=== PATIENT | male | born 1950 | race Caucasian/White ===

== ENCOUNTER 2017-11-09 16:24 | Inpatient (IN) | payer MEDICARE, BC ==
[2017-11-09] VITALS (7 sets, daily range): BP systolic 100–123; BP diastolic 56–71
[~2017-11-09] VITALS: Ht 175.3 cm; Wt 68.0 kg
[~2017-11-09 16:24] MED LIST: ASPIRIN-LOW81 MG ORAL; ATORVASTATIN CA10 MG ORAL; BRIMONIDINE TART5 ML BOTH EYES; DIOVAN40 MG ORAL; LEXAPRO20 MG ORAL; LUMIGAN2.5 ML BOTH EYES; PREVACID15 MG ORAL
[2017-11-09 17:46] LABS: HEMATOCRIT 22.4 % (42.0-52.0); HEMOGLOBIN 7.5 G/DL (14.2-18.0); MEAN CORPUSCULAR VOLUME 94 FL (80-99); PLATELET COUNT 579 K/UL (150-450); RED BLOOD COUNT 2.39 M/UL (4.70-6.10); RED CELL DISTRIBUTION WIDTH 18.7 % (11.6-14.8); WHITE BLOOD COUNT 10.7 K/UL (4.8-10.8)
[2017-11-09 18:03] LABS: ANION GAP 15 mmol/L (5-15); BLOOD UREA NITROGEN 75 mg/dL (7-18); CALCIUM 8.5 MG/DL (8.5-10.1); CARBON DIOXIDE 17 MMOL/L (21-32); CHLORIDE 102 MMOL/L (98-107); CREATININE 4.5 MG/DL (0.55-1.30); POTASSIUM 4.2 MMOL/L (3.5-5.1); SODIUM 134 MMOL/L (136-145)
[2017-11-09 18:15] LABS: ALANINE AMINOTRANSFERASE 39 U/L (12-78); ALBUMIN 1.8 G/DL (3.4-5.0); ALBUMIN/GLOBULIN RATIO 0.5 (1.0-2.7); ALKALINE PHOSPHATASE 991 U/L (46-116); ASPARTATE AMINO TRANSFERASE 99 U/L (15-37)
[2017-11-09 18:18] LABS: BILIRUBIN,DIRECT 4.4 MG/DL (0.0-0.3)
[2017-11-09] MEDS ORDERED: LANSOPRAZOLE30 M2 PO (19:08)
[2017-11-09] MEDS ORDERED: VITAMIN C500 M1 ORAL (19:08)
[2017-11-09] MEDS ORDERED: CEREFOLIN NAC1 EAC1 PO (19:08)
[2017-11-09] MEDS ORDERED: BIOTIN5000 MC1 SL (19:08)
[2017-11-09] MEDS ORDERED: TRIPLE FLEX CA1 EACH PO (19:08)
[2017-11-09] MEDS ORDERED: FLUOXETINE HCL20 MG ORAL (19:08)
[2017-11-09] MEDS ORDERED: OMEGA 3 FISH O1 EAC1 PO (19:08)
[2017-11-09] MEDS ORDERED: NEURONTIN300 MG ORAL (19:08)
[2017-11-09] MEDS ORDERED: BUPROPION XL300 MG ORAL (19:08)
[2017-11-09] MEDS ORDERED: FLOMAX0.4 MG ORAL (19:08)
[2017-11-09] MEDS ORDERED: PROVIGIL100 MG ORAL (19:08)
--- NOTE | 2017-11-09 21:29 | Emergency Room Report ---
History of Present Illness General Chief Complaint: Generalized Weakness Source: EMS Present Illness HPI 67-year-old male presents ED for evaluation. Brought in by EMS. States he's been feeling increasingly weak over the last few days. 2 weeks to get up. Per EMS blood pressure was very low in the field. Denies fevers or chills. Denies chest pain shortness of breath. Patient states he's been recently diagnosed with liver cancer. Also has metastases to the brain. Currently receiving radiation treatment. No other aggravating relieving factors. Denies any other associated symptoms Allergies: Coded Allergies: No Known Allergies (Unverified , 08/09/13) Patient History Past Medical History: HTN Past Surgical History: none Pertinent Family History: none Social History: Denies: smoking, alcohol use, drug use Immunizations: UTD Reviewed Nursing Documentation: PMH: Agreed; PSxH: Agreed Nursing Documentation-PMH Hx Cardiac Problems: Yes Hx Hypertension: Yes Hx Cancer: Yes - LIVER CA Review of Systems All Other Systems: negative except mentioned in HPI Physical Exam Vital Signs Date Time Temp Pulse Resp B/P (MAP) Pulse Ox O2 Delivery O2 Flow Rate FiO2 11/09/17 16:23 98.0 94 15 100/64 98 Room Air 98.1 Sp02 EP Interpretation: reviewed, normal General Appearance: no apparent distress, alert, GCS 15, non-toxic, cachetic Head: normocephalic Eyes: bilateral eye PERRL, bilateral eye other - icteric in both eyes ENT: normal ENT inspection Neck: normal inspection Respiratory: chest non-tender, lungs clear, normal breath sounds, speaking full sentences Cardiovascular #1: regular rate, rhythm, no edema Cardiovascular #2: 2+ carotid (R), 2+ carotid (L), 2+ radial (R), 2+ radial (L) , 2+ dorsalis pedis (R), 2+ dorsalis pedis (L) Gastrointestinal: normal bowel sounds, non tender, soft, no guarding, no rebound, distended Rectal: normal exam Genitourinary: normal inspection Musculoskeletal: back normal, gait/station normal, normal range of motion, non- tender Neurologic: alert, oriented x3, responsive, motor strength/tone normal, sensory intact, speech normal Psychiatric: normal inspection Skin: normal inspection Lymphatic: normal inspection Medical Decision Making Diagnostic Impression: Primary Impression: Weakness Additional Impressions: Renal failure Qualified Codes: N19 - Unspecified kidney failure Anemia Qualified Codes: D64.9 - Anemia, unspecified Liver failure Qualified Codes: K72.00 - Acute and subacute hepatic failure without coma ER Course Hospital Course 67-year-old male presents ED with weakness, jaundiced, blood pressure low Differential diagnoses include: anemia, dehydration, liver failure Clinical course Patient placed on stretcher. After initial history and physical I ordered labs , ivfs Labs- no luekocytosis, hb 7.5, BUN/Cr markedly elevated, LFTs elevated PRBCs ordered. IV fluids. Patient will be admitted to Dr. Quintero Diagnosis - weakness, renal failure, anemia, liver failure Admitted to floor in serious condition Labs Test 11/09/17 17:20 White Blood Count 10.7 K/UL (4.8-10.8) Red Blood Count 2.39 M/UL (4.70-6.10) Hemoglobin 7.5 G/DL (14.2-18.0) Hematocrit 22.4 % (42.0-52.0) Mean Corpuscular Volume 94 FL (80-99) Mean Corpuscular Hemoglobin 31.4 PG (27.0-31.0) Mean Corpuscular Hemoglobin Concent 33.5 G/DL (32.0-36.0) Red Cell Distribution Width 18.7 % (11.6-14.8) Platelet Count 579 K/UL (150-450) Mean Platelet Volume 5.9 FL (6.5-10.1) Neutrophils (%) (Auto) % (45.0-75.0) Lymphocytes (%) (Auto) % (20.0-45.0) Monocytes (%) (Auto) % (1.0-10.0) Eosinophils (%) (Auto) % (0.0-3.0) Basophils (%) (Auto) % (0.0-2.0) Differential Total Cells Counted 100 Neutrophils % (Manual) 77 % (45-75) Lymphocytes % (Manual) 13 % (20-45) Monocytes % (Manual) 10 % (1-10) Eosinophils % (Manual) 0 % (0-3) Basophils % (Manual) 0 % (0-2) Band Neutrophils 0 % (0-8) Nucleated Red Blood Cells 1 /100 WBC Platelet Estimate Increased Platelet Morphology Normal Polychromasia 1+ Anisocytosis 2+ Sodium Level 134 MMOL/L (136-145) Potassium Level 4.2 MMOL/L (3.5-5.1) Chloride Level 102 MMOL/L (98-107) Carbon Dioxide Level 17 MMOL/L (21-32) Anion Gap 15 mmol/L (5-15) Blood Urea Nitrogen 75 mg/dL (7-18) Creatinine 4.5 MG/DL (0.55-1.30) Estimat Glomerular Filtration Rate 13.1 mL/min (>60) Glucose Level 96 MG/DL (74-106) Calcium Level 8.5 MG/DL (8.5-10.1) Total Bilirubin 5.0 MG/DL (0.2-1.0) Direct Bilirubin 4.4 MG/DL (0.0-0.3) Aspartate Amino Transf (AST/SGOT) 99 U/L (15-37) Alanine Aminotransferase (ALT/SGPT) 39 U/L (12-78) Alkaline Phosphatase 991 U/L (46-116) Ammonia umol/L (11-32) Total Protein 5.5 G/DL (6.4-8.2) Albumin 1.8 G/DL (3.4-5.0) Globulin 3.7 g/dL Albumin/Globulin Ratio 0.5 (1.0-2.7) Lipase 150 U/L (73-393) Last Vital Signs Date Time Temp Pulse Resp B/P (MAP) Pulse Ox O2 Delivery O2 Flow Rate FiO2 11/09/17 20:40 97.8 95 20 123/58 95 Room Air 97.8 Status: improved Disposition: ADMITTED INPATIENT Condition: Serious Referrals: TONIO LOUIE MD (PCP) Arias Schwarz MD Nov 09, 2017 21:29
--- NOTE | 2017-11-09 21:31 | Emergency Room Report ---
Physical Exam Vital Signs Date Time Temp Pulse Resp B/P (MAP) Pulse Ox O2 Delivery O2 Flow Rate FiO2 11/09/17 16:23 98.0 94 15 100/64 98 Room Air 98.1 Medical Decision Making Diagnostic Impression: Primary Impression: Weakness Additional Impressions: Anemia Qualified Codes: D64.9 - Anemia, unspecified Renal failure Qualified Codes: N19 - Unspecified kidney failure Liver failure Qualified Codes: K72.00 - Acute and subacute hepatic failure without coma ER Course EKG - NSR, no acute ischemic changes interpreted by me EKG Diagnostic Results Rate: normal Rhythm: NSR ST Segments: no acute changes ASA given to the pt in ED: No Rhythm Strip Diag. Results EP Interpretation: yes Rhythm: NSR, no PVC's, no ectopy Last Vital Signs Date Time Temp Pulse Resp B/P (MAP) Pulse Ox O2 Delivery O2 Flow Rate FiO2 11/09/17 20:40 97.8 95 20 123/58 95 Room Air 97.8 Status: improved Disposition: ADMITTED INPATIENT Condition: Serious Referrals: TONIO LOUIE MD (PCP) Arias Schwarz MD Nov 09, 2017 21:31
[2017-11-09] MEDS ORDERED: HYDROmorphone 1mg/ml Carpuject IVP PRN ×2 (23:15)
[2017-11-10] VITALS: BP 118/71
[2017-11-10 04:00] VITALS: BP_SYST 109; BP_SYST 112; BP_DIAS 64; BP_DIAS 65
[2017-11-10 06:35] LABS: BASOPHILS % (AUTO) 0.6 % (0.0-2.0); EOSINOPHILS % (AUTO) 0.8 % (0.0-3.0); HEMATOCRIT 27.2 % (42.0-52.0); HEMOGLOBIN 9.2 G/DL (14.2-18.0); LYMPHOCYTES % (AUTO) 12.1 % (20.0-45.0); MEAN CORPUSCULAR VOLUME 91 FL (80-99); MONOCYTES % (AUTO) 9.2 % (1.0-10.0); NEUTROPHILS % (AUTO) 77.2 % (45.0-75.0); PLATELET COUNT 525 K/UL (150-450); RED BLOOD COUNT 2.98 M/UL (4.70-6.10); RED CELL DISTRIBUTION WIDTH 18.5 % (11.6-14.8); WHITE BLOOD COUNT 10.8 K/UL (4.8-10.8)
[2017-11-10 07:20] LABS: ALANINE AMINOTRANSFERASE 41 U/L (12-78); ALBUMIN 1.7 G/DL (3.4-5.0); ALKALINE PHOSPHATASE 939 U/L (46-116); ANION GAP 16 mmol/L (5-15); ASPARTATE AMINO TRANSFERASE 95 U/L (15-37); BILIRUBIN,DIRECT 4.9 MG/DL (0.0-0.3); BILIRUBIN,TOTAL 5.6 MG/DL (0.2-1.0); BLOOD UREA NITROGEN 74 mg/dL (7-18); CALCIUM 8.4 MG/DL (8.5-10.1); CARBON DIOXIDE 16 MMOL/L (21-32); CHLORIDE 104 MMOL/L (98-107); CREATININE 4.3 MG/DL (0.55-1.30); POTASSIUM 3.9 MMOL/L (3.5-5.1); SODIUM 135 MMOL/L (136-145)
[2017-11-10 08:00] VITALS: BP 122/74
[2017-11-10] MEDS ORDERED: Loperamide 2mg cap ORAL PRN (08:45)
[2017-11-10] MEDS ORDERED: Tamsulosin 0.4mg cap ORAL SCH (09:00)
[2017-11-10] MEDS: Loperamide 2mg cap ORAL SCH (09:04)
[2017-11-10] MEDS: Modafinil 100mg tab ORAL SCH ×2 (09:04→17:21)
[2017-11-10] MEDS: Brimonidine 0.2% Opth Sol BOTH EYES SCH ×3 (10:13→17:21)
[2017-11-10] MEDS: BuPROPion XL 300mg tab ORAL SCH (11:08)
--- NOTE | 2017-11-10 11:48 | History and Physical ---
History of Present Illness General Date patient seen: Nov 10, 2017 Time patient seen: 11:48 Reason for Hospitalization: Generalized Weakness, Intractable pain Present Illness HPI 67y/o male with pmh of BPH, HLD, R sided ocular melanoma (s/p XRT 2005), newly diagnosed metastatic melanoma (liver, lung, brain lesions) who presents with generalized weakness and intractable pain. Pt states that he was diagnosed with liver cancer in September 2017. Per review of [facility] records, pt presented with abd pain and was noted to have liver and lung lesions on 09/21/17. Pt had CT-guided biopsy on liver lesion on 09/30/17 which showed metastatic melanoma. Pt was since been followed by oncologist Dr. Pedro Laws for consideration of clinical trial. MRI brain done also showed 2 lesions in brain. Pt has also received stereotactic radiosurgery at [facility] on 10/21/17. Pt states he has had worsening abd pain and distention. he was evaluated for paracentesis recently and they determined there was insufficient fluid. Pt states he has been taking Tylenol as well as Advil every 4 hours for the past week for pain control. He notes generalized weakness, poor PO intake and weight loss. Denies f/c, n/v, d/c, chest pain, SOB. In ED, pt's SCr noted to be in 4's. Per [facility] records, pt's SCr was 1.03 in 2017. Allergies: Coded Allergies: No Known Allergies (Unverified , 08/09/13) Medication History Scheduled Ascorbic Acid* (Vitamin C*), 500 MG ORAL DAILY, (Reported) Aspirin (Aspirin EC), 81 MG ORAL DAILY, (Reported) Atorvastatin Calcium* (Lipitor*), 10 MG ORAL BEDTIME, (Reported) Bimatoprost (Lumigan), 1 DROP BOTH EYES DAILY, (Reported) Brimonidine Tartrate* (Alphagan*), 1 DROP BOTH EYES TID, (Reported) Bupropion Hcl* (Wellbutrin*), 300 MG ORAL DAILY, (Reported) Escitalopram Oxalate* (Lexapro*), 20 MG ORAL DAILY, (Reported) Fluoxetine Hcl* (Fluoxetine Hcl*), 20 MG ORAL BID, (Reported) Gabapentin (Neurontin), 300 MG ORAL BEDTIME, (Reported) Lansoprazole (Lansoprazole), 30 MG PO DAILY, (Reported) Lansoprazole* (Prevacid*), 15 MG ORAL DAILY, (Reported) Lmfol Ca/Acetyl/Mb12/Algal Oil (Cerefolin Nac Caplet), 1 EACH PO DAILY, ( Reported) Modafinil (Provigil), 100 MG ORAL BID, (Reported) Tamsulosin HCl (Flomax), 0.4 MG ORAL DAILY, (Reported) Valsartan (Diovan), 40 MG ORAL DAILY, (Reported) Miscellaneous Medications Biotin (Biotin), 5,000 MCG SL, (Reported) Glucosamine/Msm/Chondroitin A (Triple Flex Caplet), 1 EACH PO, (Reported) [place]-3 Fatty Acids/Fish Oil ([place] 3 Fish Oil Softgel), 1 EACH PO, (Reported) Patient History History Provided By: Patient, Medical Record, PMD Healthcare decision maker Resuscitation status Full Code Advanced Directive on File Past Medical/Surgical History Past Medical/Surgical History: (1) R sided ocular melanoma (2) Metastatic melanoma (3) BPH (benign prostatic hyperplasia) (4) HLD (hyperlipidemia) Family History Family History: Patient reports no known family medical history. Social History Social History: (1) lives alone Review of Systems Constitutional: Reports: weakness Eye: Reports: no symptoms ENT: Reports: no symptoms Respiratory: Reports: no symptoms Cardiovascular: Reports: no symptoms Gastrointestinal: Reports: abdominal pain Genitourinary: Reports: no symptoms Musculoskeletal: Reports: no symptoms Skin: Reports: no symptoms Psychiatric: Reports: no symptoms Neurological: Reports: no symptoms Endocrine: Reports: no symptoms Hematologic/Lymphatic: Reports: no symptoms Physical Exam Physical Exam Narrative General: alert, cooperative, no distress, appears stated ag Head: normocephalic, without obvious abnormality, atraumatic Eyes: conjunctivae/corneas clear. PERRL, EOM's intact Throat: lips, mucosa, and tongue normal. MMM Neck: supple, symmetrical, trachea midline, and no JVD Lungs: clear to auscultation bilaterally Heart: regular rate and rhythm, S1, S2 normal, no murmur, click, rub or gallop Abdomen: soft, +TTP diffusely, +moderate distention, bowel sounds normal Extremities: extremities normal, atraumatic, no cyanosis or edema Pulses: 2+ and symmetric Skin: skin color, texture, turgor normal; no rashes or lesions Neurologic: grossly normal, no focal deficits Last 24 Hour Vital Signs Date Time Temp Pulse Resp B/P (MAP) Pulse Ox O2 Delivery O2 Flow Rate FiO2 11/10/17 10:38 122/74 11/10/17 08:00 97.3 94 20 122/74 96 97.3 11/10/17 04:00 97.0 91 21 112/64 97 97.0 11/10/17 04:00 98.1 89 19 109/65 99 98.1 11/10/17 00:00 97.3 91 19 118/71 95 Room Air 97.3 11/09/17 21:50 97.8 88 20 123/56 95 Room Air 97.8 11/09/17 21:40 88 20 123/56 95 Room Air 11/09/17 20:40 97.8 95 20 123/58 95 Room Air 97.8 11/09/17 20:25 97.8 95 20 97.8 11/09/17 20:10 97.7 88 16 100/61 95 Room Air 97.7 11/09/17 20:04 97.7 89 16 100/71 97 Room Air 97.7 11/09/17 18:00 91 15 110/59 98 Room Air 11/09/17 17:00 92 16 102/68 98 Room Air 11/09/17 16:30 98.1 91 15 103/63 98 Room Air 98.1 11/09/17 16:23 98.0 94 15 100/64 98 Room Air 98.1 Intake and Output 11/09/17 11/10/17 19:00 07:00 Intake Total 1000 ml 1000 ml Output Total 60 ml 320 ml Balance 940 ml 680 ml Intake IV Total 1000 ml 1000 ml Output Urine Total 60 ml 320 ml # Voids 1 2 Laboratory Tests Test 11/09/17 17:20 11/10/17 05:50 White Blood Count 10.7 K/UL (4.8-10.8) 10.8 K/UL (4.8-10.8) Red Blood Count 2.39 M/UL (4.70-6.10) L 2.98 M/UL (4.70-6.10) L Hemoglobin 7.5 G/DL (14.2-18.0) L 9.2 G/DL (14.2-18.0) L Hematocrit 22.4 % (42.0-52.0) L 27.2 % (42.0-52.0) L Mean Corpuscular Volume 94 FL (80-99) 91 FL (80-99) Mean Corpuscular Hemoglobin 31.4 PG (27.0-31.0) H 31.0 PG (27.0-31.0) Mean Corpuscular Hemoglobin Concent 33.5 G/DL (32.0-36.0) 34.0 G/DL (32.0-36.0) Red Cell Distribution Width 18.7 % (11.6-14.8) H 18.5 % (11.6-14.8) H Platelet Count 579 K/UL (150-450) H 525 K/UL (150-450) H Mean Platelet Volume 5.9 FL (6.5-10.1) L 6.1 FL (6.5-10.1) L Neutrophils (%) (Auto) % (45.0-75.0) 77.2 % (45.0-75.0) H Lymphocytes (%) (Auto) % (20.0-45.0) 12.1 % (20.0-45.0) L Monocytes (%) (Auto) % (1.0-10.0) 9.2 % (1.0-10.0) Eosinophils (%) (Auto) % (0.0-3.0) 0.8 % (0.0-3.0) Basophils (%) (Auto) % (0.0-2.0) 0.6 % (0.0-2.0) Differential Total Cells Counted 100 Neutrophils % (Manual) 77 % (45-75) H Lymphocytes % (Manual) 13 % (20-45) L Monocytes % (Manual) 10 % (1-10) Eosinophils % (Manual) 0 % (0-3) Basophils % (Manual) 0 % (0-2) Band Neutrophils 0 % (0-8) Nucleated Red Blood Cells 1 /100 WBC Platelet Estimate Increased H Platelet Morphology Normal Polychromasia 1+ Anisocytosis 2+ Sodium Level 134 MMOL/L (136-145) L 135 MMOL/L (136-145) L Potassium Level 4.2 MMOL/L (3.5-5.1) 3.9 MMOL/L (3.5-5.1) Chloride Level 102 MMOL/L (98-107) 104 MMOL/L (98-107) Carbon Dioxide Level 17 MMOL/L (21-32) L 16 MMOL/L (21-32) L Anion Gap 15 mmol/L (5-15) 16 mmol/L (5-15) H Blood Urea Nitrogen 75 mg/dL (7-18) H 74 mg/dL (7-18) H Creatinine 4.5 MG/DL (0.55-1.30) H 4.3 MG/DL (0.55-1.30) H Estimat Glomerular Filtration Rate 13.1 mL/min (>60) 13.8 mL/min (>60) Glucose Level 96 MG/DL (74-106) 81 MG/DL (74-106) Calcium Level 8.5 MG/DL (8.5-10.1) 8.4 MG/DL (8.5-10.1) L Total Bilirubin 5.0 MG/DL (0.2-1.0) H 5.6 MG/DL (0.2-1.0) H Direct Bilirubin 4.4 MG/DL (0.0-0.3) H 4.9 MG/DL (0.0-0.3) H Aspartate Amino Transf (AST/SGOT) 99 U/L (15-37) H 95 U/L (15-37) H Alanine Aminotransferase (ALT/SGPT) 39 U/L (12-78) 41 U/L (12-78) Alkaline Phosphatase 991 U/L (46-116) H 939 U/L (46-116) H Ammonia umol/L (11-32) Total Protein 5.5 G/DL (6.4-8.2) L 5.4 G/DL (6.4-8.2) L Albumin 1.8 G/DL (3.4-5.0) L 1.7 G/DL (3.4-5.0) L Globulin 3.7 g/dL Albumin/Globulin Ratio 0.5 (1.0-2.7) L Lipase 150 U/L (73-393) Height (Feet): 5 Height (Inches): 9.00 Weight (Pounds): 150 Medications Current Medications Medications (Trade) Dose Ordered Sig/Parker Route PRN Reason Start Time Stop Time Status Last Admin Dose Admin Acetaminophen (Tylenol) 650 mg Q6H PRN ORAL Mild Pain/Temp > 100.5 11/09/17 23:15 12/09/17 23:14 Brimonidine Tartrate (Alphagan) 1 drop TID BOTH EYES 11/10/17 09:00 12/10/17 08:59 11/10/17 10:13 Bupropion HCl (Wellbutrin XL) 300 mg DAILY ORAL 11/10/17 09:00 12/10/17 08:59 11/10/17 11:08 Cetylpyridinium Chloride (Cepacol) 1 lozg EVERY 2 HOURS PRN XIMENA For Pain 11/09/17 23:15 12/09/17 23:14 11/10/17 00:09 Fish Oil (Fish Oil) 1,000 mg DAILY ORAL 11/10/17 09:00 12/10/17 08:59 11/10/17 09:04 Fluoxetine HCl (PROzac) 20 mg BID ORAL 11/10/17 09:00 12/10/17 08:59 11/10/17 09:07 Gabapentin (Neurontin) 300 mg BEDTIME ORAL 11/10/17 21:00 12/10/17 20:59 Hydromorphone HCl (Dilaudid) 0.5 mg Q4H PRN IVP For Moderate Pain 11/09/17 23:15 11/16/17 23:14 Hydromorphone HCl (Dilaudid) 1 mg Q4H PRN IVP Severe Pain (Pain Scale 7-10) 11/09/17 23:15 11/16/17 23:14 Irbesartan (Avapro) 37.5 mg DAILY ORAL 11/10/17 09:00 12/10/17 08:59 11/10/17 10:38 Latanoprost (Xalatan) 1 drop BEDTIME BOTH EYES 11/10/17 21:00 12/10/17 20:59 Loperamide HCl (Imodium) 2 mg Q4H PRN ORAL Diarrhea 11/10/17 08:45 12/10/17 08:44 Loperamide HCl (Imodium) 4 mg ONCE ORAL 11/10/17 08:35 11/11/17 09:35 11/10/17 09:04 Modafinil (Provigil) 100 mg BID ORAL 11/10/17 09:00 11/17/17 08:59 11/10/17 09:04 Non-Formulary Medication (Non-Formulary Med) 1 ea DAILY ORAL 11/10/17 09:00 12/10/17 08:59 UNV Pantoprazole (Protonix) 40 mg ACBREAKFAST ORAL 11/10/17 06:30 12/10/17 06:29 11/10/17 06:01 Tamsulosin HCl (Flomax) 0.4 mg DAILY ORAL 11/10/17 09:00 12/10/17 08:59 11/10/17 09:04 Assessment/Plan Problem List: (1) HARMONY (acute kidney injury) ICD Codes: N17.9 - Acute kidney failure, unspecified SNOMED: 19217413 (2) Hyponatremia ICD Codes: E87.1 - Hypo-osmolality and hyponatremia SNOMED: 23986250 (3) Metabolic acidosis ICD Codes: E87.2 - Acidosis SNOMED: 51365902 (4) Elevated liver enzymes ICD Codes: R74.8 - Abnormal levels of other serum enzymes SNOMED: 073264658 (5) Metastatic melanoma ICD Codes: C79.9 - Secondary malignant neoplasm of unspecified site SNOMED: 185795335 (6) R sided ocular melanoma (7) BPH (benign prostatic hyperplasia) ICD Codes: N40.0 - Benign prostatic hyperplasia without lower urinary tract symptoms SNOMED: 365794877 (8) HLD (hyperlipidemia) ICD Codes: E78.5 - Hyperlipidemia, unspecified SNOMED: 86802115 (9) Weight loss ICD Codes: R63.4 - Abnormal weight loss SNOMED: 66033370, 564865225 (10) Malnutrition ICD Codes: E46 - Unspecified protein-calorie malnutrition SNOMED: 98255541 Status: stable Assessment/Plan Admit inpt Renal consulted given HARMONY IVFs Check renal U/S Hold ARB Surgery consulted given abd pain and distention. Pt w/ rising bili so r/o biliary blockage or stone Check U/S abd and CT a/p Trend LFTs Heme/onc consulted. D/w pt's oncologist Dr. Laws, concern for hepatorenal syndrome given rising bili and rising SCr. Pt may now not be a candidate for clinical trial. Anemia workup per heme/onc Pain mgmt consulted Pain control, bowel regimen Supportive care Nutritional eval Pt requests transfer to [facility] as his oncologist is there. Pt placed on transfer list. No bed yet available. DVT Prophylaxis: SCD, HSQ Code Status: Full Hospital Classification Declaration: Based on this initial evaluation, and depending on the patient's clinical course, I anticipate that this patient will require hospitalization for 2-3 days for HARMONY, pain control, and close respiratory/hemodynamic monitoring. Disposition: Once the patient is stable to leave the hospital, I anticipate the patient will likely be discharged to the following environment: home with HH vs SNF I spent 75 minutes on this patient's case, and >50% was dedicated to counseling and/or care coordination. Discussed with patient/family, nursing staff, SW/CM, surgery, heme/onc, renal regarding clinical status, treatment course, and disposition planning. Time of note may not reflect time of encounter. Roe Lopez M.D. Nov 10, 2017 11:48
[2017-11-10 12:00] VITALS: BP 103/70
--- NOTE | 2017-11-10 13:36 | Consultation ---
History of Present Illness General Date patient seen: Nov 10, 2017 Chief Complaint: Generalized Weakness Present Illness Allergies: Coded Allergies: No Known Allergies (Unverified , 08/09/13) Medication History Scheduled Ascorbic Acid* (Vitamin C*), 500 MG ORAL DAILY, (Reported) Aspirin (Aspirin EC), 81 MG ORAL DAILY, (Reported) Atorvastatin Calcium* (Lipitor*), 10 MG ORAL BEDTIME, (Reported) Bimatoprost (Lumigan), 1 DROP BOTH EYES DAILY, (Reported) Brimonidine Tartrate* (Alphagan*), 1 DROP BOTH EYES TID, (Reported) Bupropion Hcl* (Wellbutrin*), 300 MG ORAL DAILY, (Reported) Escitalopram Oxalate* (Lexapro*), 20 MG ORAL DAILY, (Reported) Fluoxetine Hcl* (Fluoxetine Hcl*), 20 MG ORAL BID, (Reported) Gabapentin (Neurontin), 300 MG ORAL BEDTIME, (Reported) Lansoprazole (Lansoprazole), 30 MG PO DAILY, (Reported) Lansoprazole* (Prevacid*), 15 MG ORAL DAILY, (Reported) Lmfol Ca/Acetyl/Mb12/Algal Oil (Cerefolin Nac Caplet), 1 EACH PO DAILY, ( Reported) Modafinil (Provigil), 100 MG ORAL BID, (Reported) Tamsulosin HCl (Flomax), 0.4 MG ORAL DAILY, (Reported) Valsartan (Diovan), 40 MG ORAL DAILY, (Reported) Miscellaneous Medications Biotin (Biotin), 5,000 MCG SL, (Reported) Glucosamine/Msm/Chondroitin A (Triple Flex Caplet), 1 EACH PO, (Reported) [place]-3 Fatty Acids/Fish Oil ([place] 3 Fish Oil Softgel), 1 EACH PO, (Reported) Patient History Healthcare decision maker Resuscitation status Full Code Advanced Directive on File Physical Exam Last 24 Hour Vital Signs Date Time Temp Pulse Resp B/P (MAP) Pulse Ox O2 Delivery O2 Flow Rate FiO2 11/10/17 12:00 97.2 95 20 103/70 96 Room Air 97.2 11/10/17 10:38 122/74 11/10/17 08:00 97.3 94 20 122/74 96 97.3 11/10/17 04:00 97.0 91 21 112/64 97 97.0 11/10/17 04:00 98.1 89 19 109/65 99 98.1 11/10/17 00:00 97.3 91 19 118/71 95 Room Air 97.3 11/09/17 21:50 97.8 88 20 123/56 95 Room Air 97.8 11/09/17 21:40 88 20 123/56 95 Room Air 11/09/17 20:40 97.8 95 20 123/58 95 Room Air 97.8 11/09/17 20:25 97.8 95 20 97.8 11/09/17 20:10 97.7 88 16 100/61 95 Room Air 97.7 11/09/17 20:04 97.7 89 16 100/71 97 Room Air 97.7 11/09/17 18:00 91 15 110/59 98 Room Air 11/09/17 17:00 92 16 102/68 98 Room Air 11/09/17 16:30 98.1 91 15 103/63 98 Room Air 98.1 11/09/17 16:23 98.0 94 15 100/64 98 Room Air 98.1 Intake and Output 11/09/17 11/10/17 19:00 07:00 Intake Total 1000 ml 1000 ml Output Total 60 ml 320 ml Balance 940 ml 680 ml Intake IV Total 1000 ml 1000 ml Output Urine Total 60 ml 320 ml # Voids 1 2 Laboratory Tests Test 11/09/17 17:20 11/10/17 05:50 11/10/17 13:20 White Blood Count 10.7 K/UL (4.8-10.8) 10.8 K/UL (4.8-10.8) Red Blood Count 2.39 M/UL (4.70-6.10) L 2.98 M/UL (4.70-6.10) L Hemoglobin 7.5 G/DL (14.2-18.0) L 9.2 G/DL (14.2-18.0) L Hematocrit 22.4 % (42.0-52.0) L 27.2 % (42.0-52.0) L Mean Corpuscular Volume 94 FL (80-99) 91 FL (80-99) Mean Corpuscular Hemoglobin 31.4 PG (27.0-31.0) H 31.0 PG (27.0-31.0) Mean Corpuscular Hemoglobin Concent 33.5 G/DL (32.0-36.0) 34.0 G/DL (32.0-36.0) Red Cell Distribution Width 18.7 % (11.6-14.8) H 18.5 % (11.6-14.8) H Platelet Count 579 K/UL (150-450) H 525 K/UL (150-450) H Mean Platelet Volume 5.9 FL (6.5-10.1) L 6.1 FL (6.5-10.1) L Neutrophils (%) (Auto) % (45.0-75.0) 77.2 % (45.0-75.0) H Lymphocytes (%) (Auto) % (20.0-45.0) 12.1 % (20.0-45.0) L Monocytes (%) (Auto) % (1.0-10.0) 9.2 % (1.0-10.0) Eosinophils (%) (Auto) % (0.0-3.0) 0.8 % (0.0-3.0) Basophils (%) (Auto) % (0.0-2.0) 0.6 % (0.0-2.0) Differential Total Cells Counted 100 Neutrophils % (Manual) 77 % (45-75) H Lymphocytes % (Manual) 13 % (20-45) L Monocytes % (Manual) 10 % (1-10) Eosinophils % (Manual) 0 % (0-3) Basophils % (Manual) 0 % (0-2) Band Neutrophils 0 % (0-8) Nucleated Red Blood Cells 1 /100 WBC Platelet Estimate Increased H Platelet Morphology Normal Polychromasia 1+ Anisocytosis 2+ Sodium Level 134 MMOL/L (136-145) L 135 MMOL/L (136-145) L Potassium Level 4.2 MMOL/L (3.5-5.1) 3.9 MMOL/L (3.5-5.1) Chloride Level 102 MMOL/L (98-107) 104 MMOL/L (98-107) Carbon Dioxide Level 17 MMOL/L (21-32) L 16 MMOL/L (21-32) L Anion Gap 15 mmol/L (5-15) 16 mmol/L (5-15) H Blood Urea Nitrogen 75 mg/dL (7-18) H 74 mg/dL (7-18) H Creatinine 4.5 MG/DL (0.55-1.30) H 4.3 MG/DL (0.55-1.30) H Estimat Glomerular Filtration Rate 13.1 mL/min (>60) 13.8 mL/min (>60) Glucose Level 96 MG/DL (74-106) 81 MG/DL (74-106) Calcium Level 8.5 MG/DL (8.5-10.1) 8.4 MG/DL (8.5-10.1) L Total Bilirubin 5.0 MG/DL (0.2-1.0) H 5.6 MG/DL (0.2-1.0) H Direct Bilirubin 4.4 MG/DL (0.0-0.3) H 4.9 MG/DL (0.0-0.3) H Aspartate Amino Transf (AST/SGOT) 99 U/L (15-37) H 95 U/L (15-37) H Alanine Aminotransferase (ALT/SGPT) 39 U/L (12-78) 41 U/L (12-78) Alkaline Phosphatase 991 U/L (46-116) H 939 U/L (46-116) H Ammonia umol/L (11-32) Total Protein 5.5 G/DL (6.4-8.2) L 5.4 G/DL (6.4-8.2) L Albumin 1.8 G/DL (3.4-5.0) L 1.7 G/DL (3.4-5.0) L Globulin 3.7 g/dL Albumin/Globulin Ratio 0.5 (1.0-2.7) L Lipase 150 U/L (73-393) Prothrombin Time Pending Prothromb Time International Ratio Pending Height (Feet): 5 Height (Inches): 9.00 Weight (Pounds): 150 Medications Current Medications Medications (Trade) Dose Ordered Sig/Parker Route PRN Reason Start Time Stop Time Status Last Admin Dose Admin Acetaminophen (Tylenol) 650 mg Q6H PRN ORAL Mild Pain/Temp > 100.5 11/09/17 23:15 12/09/17 23:14 Brimonidine Tartrate (Alphagan) 1 drop TID BOTH EYES 11/10/17 09:00 5/12/18 08:59 11/10/17 13:08 Bupropion HCl (Wellbutrin XL) 300 mg DAILY ORAL 11/10/17 09:00 12/10/17 08:59 11/10/17 11:08 Cetylpyridinium Chloride (Cepacol) 1 lozg EVERY 2 HOURS PRN XIMENA For Pain 11/09/17 23:15 12/09/17 23:14 11/10/17 00:09 Fish Oil (Fish Oil) 1,000 mg DAILY ORAL 11/10/17 09:00 12/10/17 08:59 11/10/17 09:04 Fluoxetine HCl (PROzac) 20 mg BID ORAL 11/10/17 09:00 12/10/17 08:59 11/10/17 09:07 Gabapentin (Neurontin) 300 mg BEDTIME ORAL 11/10/17 21:00 12/10/17 20:59 Hydromorphone HCl (Dilaudid) 0.5 mg Q4H PRN IVP For Moderate Pain 11/09/17 23:15 11/16/17 23:14 Hydromorphone HCl (Dilaudid) 1 mg Q4H PRN IVP Severe Pain (Pain Scale 7-10) 11/09/17 23:15 11/16/17 23:14 Irbesartan (Avapro) 37.5 mg DAILY ORAL 11/10/17 09:00 12/10/17 08:59 11/10/17 10:38 Latanoprost (Xalatan) 1 drop BEDTIME BOTH EYES 11/10/17 21:00 12/10/17 20:59 Loperamide HCl (Imodium) 2 mg Q4H PRN ORAL Diarrhea 11/10/17 08:45 12/10/17 08:44 Loperamide HCl (Imodium) 4 mg ONCE ORAL 11/10/17 08:35 11/11/17 09:35 11/10/17 09:04 Modafinil (Provigil) 100 mg BID ORAL 11/10/17 09:00 11/17/17 08:59 11/10/17 09:04 Non-Formulary Medication (Non-Formulary Med) 1 ea DAILY ORAL 11/10/17 09:00 12/10/17 08:59 UNV Pantoprazole (Protonix) 40 mg ACBREAKFAST ORAL 11/10/17 06:30 12/10/17 06:29 11/10/17 06:01 Tamsulosin HCl (Flomax) 0.4 mg DAILY ORAL 11/10/17 09:00 12/10/17 08:59 11/10/17 09:04 Assessment/Plan Assessment/Plan (1) Abdominal pain (2) Metastatic melanoma (liver, lung, brain lesions) Seen dictated. ODALIS GUTIERREZ Nov 10, 2017 13:36
[2017-11-10 13:50] LABS: INR 1.2 (0.9-1.1)
--- NOTE | 2017-11-10 13:56 | Consultation ---
Consult Note Consult Note asked to eval for renal failure- Chief Complaint: Generalized Weakness 67-year-old male presents ED for evaluation. Brought in by EMS. States he's been feeling increasingly weak over the last few days. 2 weeks to get up. Per EMS blood pressure was very low in the field. Denies fevers or chills. Denies chest pain shortness of breath. Patient states he's been recently diagnosed with liver mets. Also has metastases to the brain. Currently receiving radiation treatment. No other aggravating relieving factors. Denies any other associated symptoms Past Medical History: HTN Hx Cardiac Problems: Yes Hx Hypertension: Yes Hx Cancer: Yes - LIVER CA interviewed examined data reviewed Icteric . Assessment/Plan Renal failure, ? Acute on Chronic High Bili , Liver mets from melanoma Anemia Plan: Kidney SAMMY Anemia lopez GI eval avoid nephrotoxics per orders LC FULLER Nov 10, 2017 13:56
[2017-11-10] MEDS: traMADol 50mg tab ORAL PRN (14:08)
[2017-11-10 16:00] VITALS: BP 106/66
--- NOTE | 2017-11-10 16:06 | Diagnostic Imaging Report ---
Indication:Elevated Bun and Creatinine. Technique: Grayscale and duplex Doppler imaging of the kidneys performed. Comparison: None Findings: The size, contour, and echogenicity of both kidneys are within normal limits. There is no hydronephrosis. Both kidneys are too 11 and 12 cm. The IVC and urinary bladder are unremarkable. Ascites incidentally noted. There are several echogenic lesions within the liver, which are nonspecific by the chronic sonographic evaluation. These may represent neoplasm as patient has a history of liver malignancy. Correlate with other exams. IMPRESSION: Negative examination of the kidneys. Ascites Multiple echogenic liver lesions nonspecific. Malignancy not excluded
[2017-11-10 17:15] LABS: APPEARANCE,URINE CLEAR; BILIRUBIN, URINE 3+ (NEGATIVE); COLOR,URINE BROWN; GLUCOSE, URINE (UA) NEGATIVE (NEGATIVE); KETONES,URINE 1+ (NEGATIVE); LEUKOCYTE ESTERASE ,URINE 1+ (NEGATIVE); NITRITE,URINE NEGATIVE (NEGATIVE); PH,URINE 5 (4.5-8.0); PROTEIN,URINE 2+ (NEGATIVE); UROBILINOGEN,URINE 8 MG/DL (0.0-1.0)
[2017-11-10] MEDS: Latanoprost 0.005% Opth 2.5ml Soln BOTH EYES SCH (17:21)
[2017-11-10] MEDS: Tamsulosin 0.4mg cap ORAL SCH (17:21)
--- NOTE | 2017-11-10 18:03 | Consultation ---
History of Present Illness General Date patient seen: Nov 10, 2017 Chief Complaint: Generalized Weakness Reason for Consultation: abdominal pain Present Illness HPI 67y/o male with pmh of BPH, HLD, R sided ocular melanoma (s/p XRT 2005), newly diagnosed metastatic melanoma (liver, lung, brain lesions) who presents with generalized weakness and intractable abdominal pain. Pt states that he was diagnosed with liver cancer in September 2017. Per review of [facility] records, pt presented with abd pain and was noted to have liver and lung lesions on . Pt had CT-guided biopsy on liver lesion on 09/30/17 which showed metastatic melanoma. Pt was since been followed by oncologist Dr. Pedro Laws for consideration of clinical trial. MRI brain done also showed 2 lesions in brain. Pt has also received stereotactic radiosurgery at [facility] on 10/21/17. Pt states he has had worsening abd pain and distention. he was evaluated for paracentesis recently and they determined there was insufficient fluid. Pt states he has been taking Tylenol as well as Advil every 4 hours for the past week for pain control. He notes generalized weakness, poor PO intake and weight loss. Denies f /c, n/v, d/c, chest pain, SOB. Abdominal pain persists and is described as cramping generalized abdominal pain without radiation. no areas of focal pain. Surgery called to evaluate for abdominal pain. patient seen, examined, chart reviewed. noted to have worsening LFT's, Cr, labs as compared to prior from [facility] Allergies: Coded Allergies: No Known Allergies (Unverified , 08/09/13) Medication History Scheduled Ascorbic Acid* (Vitamin C*), 500 MG ORAL DAILY, (Reported) Aspirin (Aspirin EC), 81 MG ORAL DAILY, (Reported) Atorvastatin Calcium* (Lipitor*), 10 MG ORAL BEDTIME, (Reported) Bimatoprost (Lumigan), 1 DROP BOTH EYES DAILY, (Reported) Brimonidine Tartrate* (Alphagan*), 1 DROP BOTH EYES TID, (Reported) Bupropion Hcl* (Wellbutrin*), 300 MG ORAL DAILY, (Reported) Escitalopram Oxalate* (Lexapro*), 20 MG ORAL DAILY, (Reported) Fluoxetine Hcl* (Fluoxetine Hcl*), 20 MG ORAL BID, (Reported) Gabapentin (Neurontin), 300 MG ORAL BEDTIME, (Reported) Lansoprazole (Lansoprazole), 30 MG PO DAILY, (Reported) Lansoprazole* (Prevacid*), 15 MG ORAL DAILY, (Reported) Lmfol Ca/Acetyl/Mb12/Algal Oil (Cerefolin Nac Caplet), 1 EACH PO DAILY, ( Reported) Modafinil (Provigil), 100 MG ORAL BID, (Reported) Tamsulosin HCl (Flomax), 0.4 MG ORAL DAILY, (Reported) Valsartan (Diovan), 40 MG ORAL DAILY, (Reported) Miscellaneous Medications Biotin (Biotin), 5,000 MCG SL, (Reported) Glucosamine/Msm/Chondroitin A (Triple Flex Caplet), 1 EACH PO, (Reported) [place]-3 Fatty Acids/Fish Oil ([place] 3 Fish Oil Softgel), 1 EACH PO, (Reported) Patient History History Provided By: Patient, Medical Record, PMD Healthcare decision maker Resuscitation status Full Code Advanced Directive on File Past Medical/Surgical History Past Medical/Surgical History: (1) Abdominal pain (2) depressive disorder NOS (3) Anemia (4) Renal failure (5) Liver failure (6) Weakness (7) HLD (hyperlipidemia) (8) BPH (benign prostatic hyperplasia) (9) Metastatic melanoma (10) R sided ocular melanoma (11) lives alone (12) HARMONY (acute kidney injury) (13) Hyponatremia (14) Metabolic acidosis (15) Elevated liver enzymes (16) Weight loss (17) Malnutrition Review of Systems All Other Systems: negative except mentioned in HPI Physical Exam General Appearance: no apparent distress, alert Lines, tubes and drains: peripheral HEENT: normocephalic, mucous membranes moist Neck: supple Respiratory/Chest: normal breath sounds, no respiratory distress, no accessory muscle use Cardiovascular/Chest: normal rate, regular rhythm Abdomen: distended, tender, mass, other - firm, distended, some tendnerness but no rebound, no guarding, no peritonitis, just discomfort. Extremities: normal range of motion, non-tender Skin Exam: normal pigmentation Neurologic: alert, oriented x 3 Last 24 Hour Vital Signs Date Time Temp Pulse Resp B/P (MAP) Pulse Ox O2 Delivery O2 Flow Rate FiO2 11/10/17 16:00 97.2 88 20 106/66 96 Room Air 97.2 11/10/17 12:00 97.2 95 20 103/70 96 Room Air 97.2 11/10/17 10:38 122/74 11/10/17 08:00 97.3 94 20 122/74 96 97.3 11/10/17 04:00 97.0 91 21 112/64 97 97.0 11/10/17 04:00 98.1 89 19 109/65 99 98.1 11/10/17 00:00 97.3 91 19 118/71 95 Room Air 97.3 11/09/17 21:50 97.8 88 20 123/56 95 Room Air 97.8 11/09/17 21:40 88 20 123/56 95 Room Air 11/09/17 20:40 97.8 95 20 123/58 95 Room Air 97.8 11/09/17 20:25 97.8 95 20 97.8 11/09/17 20:10 97.7 88 16 100/61 95 Room Air 97.7 11/09/17 20:04 97.7 89 16 100/71 97 Room Air 97.7 11/09/17 18:00 91 15 110/59 98 Room Air Intake and Output 11/09/17 11/10/17 19:00 07:00 Intake Total 1000 ml 1000 ml Output Total 60 ml 320 ml Balance 940 ml 680 ml Intake IV Total 1000 ml 1000 ml Output Urine Total 60 ml 320 ml # Voids 1 2 Laboratory Tests Test 11/10/17 05:50 11/10/17 13:20 11/10/17 14:23 White Blood Count 10.8 K/UL (4.8-10.8) Red Blood Count 2.98 M/UL (4.70-6.10) L Hemoglobin 9.2 G/DL (14.2-18.0) L Hematocrit 27.2 % (42.0-52.0) L Mean Corpuscular Volume 91 FL (80-99) Mean Corpuscular Hemoglobin 31.0 PG (27.0-31.0) Mean Corpuscular Hemoglobin Concent 34.0 G/DL (32.0-36.0) Red Cell Distribution Width 18.5 % (11.6-14.8) H Platelet Count 525 K/UL (150-450) H Mean Platelet Volume 6.1 FL (6.5-10.1) L Neutrophils (%) (Auto) 77.2 % (45.0-75.0) H Lymphocytes (%) (Auto) 12.1 % (20.0-45.0) L Monocytes (%) (Auto) 9.2 % (1.0-10.0) Eosinophils (%) (Auto) 0.8 % (0.0-3.0) Basophils (%) (Auto) 0.6 % (0.0-2.0) Sodium Level 135 MMOL/L (136-145) L Potassium Level 3.9 MMOL/L (3.5-5.1) Chloride Level 104 MMOL/L (98-107) Carbon Dioxide Level 16 MMOL/L (21-32) L Anion Gap 16 mmol/L (5-15) H Blood Urea Nitrogen 74 mg/dL (7-18) H Creatinine 4.3 MG/DL (0.55-1.30) H Estimat Glomerular Filtration Rate 13.8 mL/min (>60) Glucose Level 81 MG/DL (74-106) Calcium Level 8.4 MG/DL (8.5-10.1) L Total Bilirubin 5.6 MG/DL (0.2-1.0) H Direct Bilirubin 4.9 MG/DL (0.0-0.3) H Aspartate Amino Transf (AST/SGOT) 95 U/L (15-37) H Alanine Aminotransferase (ALT/SGPT) 41 U/L (12-78) Alkaline Phosphatase 939 U/L (46-116) H C-Reactive Protein, Quantitative 8.1 mg/dL (0.00-0.90) H Total Protein 5.4 G/DL (6.4-8.2) L Albumin 1.7 G/DL (3.4-5.0) L Prothrombin Time 12.3 SEC (9.30-11.50) H Prothromb Time International Ratio 1.2 (0.9-1.1) H Urine Color Brown Urine Appearance Clear Urine pH 5 (4.5-8.0) Urine Specific [place] 1.015 (1.005-1.035) Urine Protein 2+ (NEGATIVE) H Urine Glucose (UA) Negative (NEGATIVE) Urine Ketones 1+ (NEGATIVE) H Urine Occult Blood 1+ (NEGATIVE) H Urine Nitrite Negative (NEGATIVE) Urine Bilirubin 3+ (NEGATIVE) H Urine Ictotest Negative Urine Urobilinogen 8 MG/DL (0.0-1.0) H Urine Leukocyte Esterase 1+ (NEGATIVE) H Urine RBC 2-4 /HPF (0 - 0) H Urine WBC 0-2 /HPF (0 - 0) Urine Squamous Epithelial Cells None /LPF (NONE/OCC) Urine Amorphous Sediment Few /LPF (NONE) H Urine Bacteria Few /HPF (NONE) Urine Random Sodium 56 mmol/L (20-110) Height (Feet): 5 Height (Inches): 9.00 Weight (Pounds): 150 Medications Current Medications Medications (Trade) Dose Ordered Sig/Parker Route PRN Reason Start Time Stop Time Status Last Admin Dose Admin Acetaminophen (Tylenol) 650 mg Q6H PRN ORAL Mild Pain/Temp > 100.5 11/09/17 23:15 12/09/17 23:14 Brimonidine Tartrate (Alphagan) 1 drop TID BOTH EYES 11/10/17 09:00 12/10/17 08:59 11/10/17 17:21 Bupropion HCl (Wellbutrin XL) 300 mg DAILY ORAL 11/10/17 09:00 12/10/17 08:59 11/10/17 11:08 Cetylpyridinium Chloride (Cepacol) 1 lozg EVERY 2 HOURS PRN XIMENA For Pain 11/09/17 23:15 12/09/17 23:14 11/10/17 15:15 Fish Oil (Fish Oil) 1,000 mg DAILY ORAL 11/10/17 09:00 12/10/17 08:59 11/10/17 09:04 Fluoxetine HCl (PROzac) 20 mg BID ORAL 11/10/17 09:00 12/10/17 08:59 11/10/17 17:21 Gabapentin (Neurontin) 300 mg BEDTIME ORAL 11/10/17 21:00 12/10/17 20:59 Lansoprazole (Prevacid) 30 mg DAILY ORAL 11/10/17 14:30 12/10/17 14:29 11/10/17 15:15 Latanoprost (Xalatan) 1 drop BEDTIME BOTH EYES 11/10/17 21:00 12/10/17 20:59 11/10/17 17:21 Loperamide HCl (Imodium) 2 mg Q4H PRN ORAL Diarrhea 11/10/17 08:45 12/10/17 08:44 Loperamide HCl (Imodium) 4 mg ONCE ORAL 11/10/17 08:35 11/11/17 09:35 11/10/17 09:04 Modafinil (Provigil) 100 mg BID ORAL 11/10/17 09:00 11/17/17 08:59 11/10/17 17:21 Non-Formulary Medication (Non-Formulary Med) 1 ea DAILY ORAL 11/10/17 09:00 12/10/17 08:59 UNV Sodium Chloride 1,000 ml @ 75 mls/hr [id number] IV 11/10/17 16:00 12/10/17 15:59 11/10/17 16:18 Tamsulosin HCl (Flomax) 0.4 mg BID ORAL 11/10/17 18:00 12/10/17 08:59 11/10/17 17:21 Tramadol HCl (Ultram) 50 mg Q6H PRN ORAL Severe Pain (Pain Scale 7-10) 11/10/17 13:45 11/17/17 13:44 11/10/17 14:08 Assessment/Plan Problem List: (1) Abdominal pain Assessment & Plan: 67M with metastatic melanoma. known abdominal pathology/ disease. exam with distended/firm abdomen but no peritonitis. no n/v. passing flatus/loose bm's. does not seem to be obstructed at this time. pain likely chronic and from metastatic condition. elevated labs new finding and need further evaluation -pending ultrasound read -CT abdomen/pelvis. (cannot use IV contrast given Cr) -will monitor exam. -no acute surgical intervention planned -patients states possible clinical trail at [facility]. may also consider hospice. thank you for this consultation. will follow with recs. ICD Codes: R10.9 - Unspecified abdominal pain SNOMED: [id number] Qualifiers: Qualified Codes: R10.84 - Generalized abdominal pain Status: progressing Den Sanchez Nov 10, 2017 18:03
[2017-11-10 20:00] VITALS: BP 97/67
--- NOTE | 2017-11-10 23:15 | Consultation ---
DATE OF CONSULTATION: 11/10/2017 HEMATOLOGY/ONCOLOGY CONSULTATION CONSULTING PHYSICIAN: Rich Delaney M.D. REQUESTING PHYSICIANS: Alyse Woody M.D. and Roe Lopez M.D. REASON FOR CONSULTATION: Evaluation of metastatic liver cancer and evaluation of severe anemia requiring blood transfusion. IDENTIFICATION DATA: Dear Dr. Au and Dr. Woody, The patient is a pleasant 67-year-old male with past medical history significant for hypertension, does not have a history of hepatitis C and/or alcohol abuse, at this time presents to the ER with increased fatigue, lethargy, weight loss, difficulty getting up over the past several weeks. Blood pressure was noted to be low. He denies any fevers or chills. No hematochezia. No constipation. The patient with recent diagnosis of liver cancer with extremely poor prognosis with metastasis to the brain, has been receiving radiation, however, has not started systemic treatment and potentially to undergo chemotherapy with immunotherapy trial at [facility]. Hematology/Oncology Service was consulted for further evaluation and treatment. PAST MEDICAL HISTORY: Hypertension. PAST SURGICAL HISTORY: None noted. FAMILY HISTORY: Noncontributory. SOCIAL HISTORY: No alcohol, tobacco, or illicit drug use. IMMUNIZATIONS: Up to date. REVIEW OF SYSTEMS: CONSTITUTIONAL: No fevers, chills, or night sweats. SKIN: No rashes, bumps, or itching. HEENT: No headache, hearing or vision changes. BREASTS: No lumps, pain, or discharge. PULMONARY: No cough, sputum, or shortness of breath. GASTROINTESTINAL: No nausea, vomiting, or diarrhea. GENITOURINARY: No dysuria, frequency, or urgency. MUSCULOSKELETAL: No joint swelling, muscle pain, or trauma. PHYSICAL EXAMINATION: VITAL SIGNS: Reviewed. GENERAL: No distress. LUNGS: Decreased breath sounds. CARDIOVASCULAR: Regular rate. No S3 or S4. ABDOMEN: Soft, nontender, and nondistended. EXTREMITIES: No cyanosis, swelling, or edema noted. LABORATORY AND DIAGNOSTIC DATA: WBC 2.8, hemoglobin 9.2, hematocrit 27, and platelet count 552,000. BUN 74 and creatinine 4.3. Total bilirubin 5.6 and direct bilirubin 4.9. ASSESSMENT AND RECOMMENDATIONS: 1. Metastatic liver cancer with extremely poor prognosis, history of coagulopathy, history of asterixis. The patient already has brain metastasis. Metastatic liver cancer is a disease generally at this time in this era with poor prognosis even with the most advanced treatments. Generally, patients can benefit from multikinase, tyrosine kinase inhibitors, , however again, the patient at this time given current treatment poorly, I have discussed with him RFA systemic treatment with TKI and/or undergoing clinical trial at [facility]. He has seen a picu nurse at [facility] and his plan is to begin immunotherapy, potentially a clinical trial with immunotherapy of some type. At this time, his prognosis remains again very poor given brain metastasis and has extremely short window to begin treatment. 2. Anemia due to underlying chronic disease. Continue to closely monitor. Hemoglobin goal is above 7. 3. Hyperbilirubinemia likely secondary to liver involvement with metastasis, has been imaged before at [facility]. 4. Hypertension. Systolic blood pressure goal less than 140. 5. Acute on chronic hepatic failure without coma, however, . 6. Coagulopathy. Obtain INR. I appreciate the consultation, Dr. Woody and Dr. Au. Rich Delaney M.D. : Asher JOB#: [id number] CC:
[2017-11-11] VITALS: BP 104/69
[2017-11-11 04:00] VITALS: BP 110/74
[2017-11-11 07:38] LABS: BASOPHILS % (AUTO) 0.4 % (0.0-2.0); EOSINOPHILS % (AUTO) 0.7 % (0.0-3.0); HEMATOCRIT 27.8 % (42.0-52.0); HEMOGLOBIN 9.6 G/DL (14.2-18.0); MEAN CORPUSCULAR VOLUME 91 FL (80-99); MONOCYTES % (AUTO) 7.7 % (1.0-10.0); NEUTROPHILS % (AUTO) 78.2 % (45.0-75.0); PLATELET COUNT 501 K/UL (150-450); RED BLOOD COUNT 3.07 M/UL (4.70-6.10); RED CELL DISTRIBUTION WIDTH 18.4 % (11.6-14.8); WHITE BLOOD COUNT 10.6 K/UL (4.8-10.8)
[2017-11-11 08:00] VITALS: BP 113/75
[2017-11-11 08:15] LABS: AMMONIA 63 umol/L (11-32)
[2017-11-11 08:19] LABS: ALANINE AMINOTRANSFERASE 36 U/L (12-78); ALBUMIN 1.7 G/DL (3.4-5.0); ALBUMIN/GLOBULIN RATIO 0.4 (1.0-2.7); ALKALINE PHOSPHATASE 873 U/L (46-116); ANION GAP 15 mmol/L (5-15); ASPARTATE AMINO TRANSFERASE 89 U/L (15-37); BILIRUBIN,DIRECT 4.7 MG/DL (0.0-0.3); BILIRUBIN,TOTAL 5.4 MG/DL (0.2-1.0); BLOOD UREA NITROGEN 79 mg/dL (7-18); CALCIUM 8.8 MG/DL (8.5-10.1); CARBON DIOXIDE 17 MMOL/L (21-32); CHLORIDE 103 MMOL/L (98-107); CHOLESTEROL 319 MG/DL (< 200); FERRITIN 540 NG/ML (8-388); HDL CHOLESTEROL 4 MG/DL (40-60); POTASSIUM 3.8 MMOL/L (3.5-5.1); SODIUM 135 MMOL/L (136-145); TRIGLYCERIDES 304 MG/DL (30-150)
[2017-11-11 08:24] LABS: % IRON SATURATION 12 % (15-50); IRON 27 ug/dL (50-175); TOTAL IRON BINDING CAPACITY 218 ug/dL (250-450)
[2017-11-11 08:28] LABS: GAMMA GLUTAMYL TRANSPEPTIDASE 692 U/L (5-85); PHOSPHORUS 5.9 MG/DL (2.5-4.9)
--- NOTE | 2017-11-11 09:05 | General Progress Note ---
Assessment/Plan Assessment/Plan (1) Abdominal pain (2) Metastatic melanoma (liver, lung, brain lesions) We will continued Tramadol as needed. D/w Dr. Doan and he concurred. Subjective Date patient seen: Nov 11, 2017 Time patient seen: 07:15 - am Constitutional: Reports: no symptoms HEENT: Reports: no symptoms Cardiovascular: Reports: no symptoms Respiratory: Reports: no symptoms Gastrointestinal/Abdominal: Reports: abdomen distended, abdominal pain Genitourinary: Reports: no symptoms Neurologic/Psychiatric: Reports: no symptoms Endocrine: Reports: no symptoms Hematologic/Lymphatic: Reports: no symptoms Allergies: Coded Allergies: No Known Allergies (Unverified , 08/09/13) Subjective Patient is standing and walking no signs of pain at this time and patient reports that the pain has been reduced on the Tramadol. Feeling better. Objective Last 24 Hour Vital Signs Date Time Temp Pulse Resp B/P (MAP) Pulse Ox O2 Delivery O2 Flow Rate FiO2 11/11/17 08:00 97.3 90 22 113/75 95 Room Air 97.3 11/11/17 04:00 98.1 90 20 110/74 95 98.1 11/11/17 00:00 97.2 86 20 104/69 95 97.2 11/10/17 20:00 97.8 91 20 97/67 95 97.8 11/10/17 16:00 97.2 88 20 106/66 96 Room Air 97.2 11/10/17 12:00 97.2 95 20 103/70 96 Room Air 97.2 11/10/17 10:38 122/74 Intake and Output 11/10/17 11/11/17 19:00 07:00 Intake Total 335 ml 825 ml Balance 335 ml 825 ml Intake Oral 260 ml IV Total 75 ml 825 ml # Voids 4 2 # Bowel Movements 1 Laboratory Tests 11/10/17 13:20: Prothrombin Time 12.3H, Prothromb Time International Ratio 1.2H 11/10/17 14:23: Urine Color Brown, Urine Appearance Clear, Urine pH 5, Urine Specific [place] 1.015, Urine Protein 2+H, Urine Glucose (UA) Negative, Urine Ketones 1+H, Urine Occult Blood 1+H, Urine Nitrite Negative, Urine Bilirubin 3+H, Urine Ictotest Negative, Urine Urobilinogen 8H, Urine Leukocyte Esterase 1+H, Urine RBC 2-4H, Urine WBC 0-2, Urine Squamous Epithelial Cells None, Urine Amorphous Sediment FewH, Urine Bacteria Few, Urine Random Sodium 56 11/11/17 05:30: White Blood Count 10.6, Red Blood Count 3.07L, Hemoglobin 9.6L, Hematocrit 27.8L , Mean Corpuscular Volume 91, Mean Corpuscular Hemoglobin 31.1H, Mean Corpuscular Hemoglobin Concent 34.4, Red Cell Distribution Width 18.4H, Platelet Count 501H, Mean Platelet Volume 5.9L, Neutrophils (%) (Auto) 78.2H, Lymphocytes (%) (Auto) 13.0L, Monocytes (%) (Auto) 7.7, Eosinophils (%) (Auto) 0.7, Basophils (%) (Auto) 0.4, Sodium Level 135L, Potassium Level 3.8, Chloride Level 103, Carbon Dioxide Level 17L, Anion Gap 15, Blood Urea Nitrogen 79H, Creatinine 5.0H, Estimat Glomerular Filtration Rate 11.6, Glucose Level 72L, Hemoglobin A1c 4.8, Uric Acid 14.6H, Calcium Level 8.8, Phosphorus Level 5.9H, Magnesium Level 2.0, Iron Level 27L, Total Iron Binding Capacity 218L, Percent Iron Saturation 12L, Unsaturated Iron Binding 191, Ferritin 540H, Total Bilirubin 5.4H, Direct Bilirubin 4.7H, Gamma Glutamyl Transpeptidase 692H, Aspartate Amino Transf (AST/SGOT) 89H, Alanine Aminotransferase (ALT/SGPT) 36, Alkaline Phosphatase 873H, Ammonia 63H, Troponin I 0.000, Pro-B-Type Natriuretic Peptide 1127H, Total Protein 5.7L, Albumin 1.7L, Globulin 4.0, Albumin/Globulin Ratio 0.4L, Triglycerides Level 304H, Cholesterol Level 319H, LDL Cholesterol 316H, HDL Cholesterol 4L, Cholesterol/HDL Ratio 79.8H, Lipase 1082H, Alpha Fetoprotein [Pending], Vitamin B12 Level [Pending], Folate [Pending ], Thyroid Stimulating Hormone (TSH) 2.917, Cortisol AM Sample [Pending] Height (Feet): 5 Height (Inches): 9.00 Weight (Pounds): 150 General Appearance: no apparent distress, alert EENT: PERRL/EOMI, normal ENT inspection Neck: non-tender, normal alignment Cardiovascular: normal rate, regular rhythm Respiratory/Chest: decreased breath sounds Abdomen: tender Extremities: non-tender Edema: no edema noted Arm (L), no edema noted Arm (R), no edema noted Leg (L), no edema noted Leg (R), no edema noted Pedal (L), no edema noted Pedal (R), no edema noted Generalized Neurologic: alert, oriented x 3 Skin: normal pigmentation ODALIS GUTIERREZ Nov 11, 2017 09:05
[2017-11-11] MEDS: Brimonidine 0.2% Opth Sol BOTH EYES SCH ×3 (10:57→18:40)
[2017-11-11] MEDS: Tamsulosin 0.4mg cap ORAL SCH ×2 (10:58→18:39)
[2017-11-11] MEDS: Loperamide 2mg cap ORAL SCH (10:59)
[2017-11-11] MEDS: BuPROPion XL 300mg tab ORAL SCH (10:59)
[2017-11-11] MEDS: Modafinil 100mg tab ORAL SCH ×2 (10:59→18:39)
[2017-11-11] MEDS: traMADol 50mg tab ORAL PRN ×2 (10:59→18:43)
[2017-11-11 12:00] VITALS: BP 113/74
--- NOTE | 2017-11-11 13:12 | Nephrology Progress Note ---
Assessment/Plan Problem List: (1) Metastatic melanoma (2) Acute renal failure (3) Anemia Assessment Renal failure, ? Acute on Chronic. Cr rising High Bili , Liver mets from melanoma Anemia Plan Plan: suggested dialysis- patinet declining at this time Kidney SAMMY noted Anemia lopez GI eval avoid nephrotoxics per orders Subjective ROS Limited/Unobtainable: No Constitutional: Reports: malaise Objective Objective Last 24 Hour Vital Signs Date Time Temp Pulse Resp B/P (MAP) Pulse Ox O2 Delivery O2 Flow Rate FiO2 11/11/17 11:55 97.3 11/11/17 10:59 97.3 11/11/17 08:00 97.3 90 22 113/75 95 Room Air 97.3 11/11/17 04:00 98.1 90 20 110/74 95 98.1 11/11/17 00:00 97.2 86 20 104/69 95 97.2 11/10/17 20:00 97.8 91 20 97/67 95 97.8 11/10/17 16:00 97.2 88 20 106/66 96 Room Air 97.2 Intake and Output 11/10/17 11/11/17 18:59 06:59 Intake Total 260 ml 900 ml Balance 260 ml 900 ml Intake Oral 260 ml IV Total 900 ml # Voids 4 2 # Bowel Movements 1 Laboratory Tests 11/10/17 13:20: Prothrombin Time 12.3H, Prothromb Time International Ratio 1.2H 11/10/17 14:23: Urine Color Brown, Urine Appearance Clear, Urine pH 5, Urine Specific [place] 1.015, Urine Protein 2+H, Urine Glucose (UA) Negative, Urine Ketones 1+H, Urine Occult Blood 1+H, Urine Nitrite Negative, Urine Bilirubin 3+H, Urine Ictotest Negative, Urine Urobilinogen 8H, Urine Leukocyte Esterase 1+H, Urine RBC 2-4H, Urine WBC 0-2, Urine Squamous Epithelial Cells None, Urine Amorphous Sediment FewH, Urine Bacteria Few, Urine Random Sodium 56 11/11/17 05:30: White Blood Count 10.6, Red Blood Count 3.07L, Hemoglobin 9.6L, Hematocrit 27.8L , Mean Corpuscular Volume 91, Mean Corpuscular Hemoglobin 31.1H, Mean Corpuscular Hemoglobin Concent 34.4, Red Cell Distribution Width 18.4H, Platelet Count 501H, Mean Platelet Volume 5.9L, Neutrophils (%) (Auto) 78.2H, Lymphocytes (%) (Auto) 13.0L, Monocytes (%) (Auto) 7.7, Eosinophils (%) (Auto) 0.7, Basophils (%) (Auto) 0.4, Sodium Level 135L, Potassium Level 3.8, Chloride Level 103, Carbon Dioxide Level 17L, Anion Gap 15, Blood Urea Nitrogen 79H, Creatinine 5.0H, Estimat Glomerular Filtration Rate 11.6, Glucose Level 72L, Hemoglobin A1c 4.8, Uric Acid 14.6H, Calcium Level 8.8, Phosphorus Level 5.9H, Magnesium Level 2.0, Iron Level 27L, Total Iron Binding Capacity 218L, Percent Iron Saturation 12L, Unsaturated Iron Binding 191, Ferritin 540H, Total Bilirubin 5.4H, Direct Bilirubin 4.7H, Gamma Glutamyl Transpeptidase 692H, Aspartate Amino Transf (AST/SGOT) 89H, Alanine Aminotransferase (ALT/SGPT) 36, Alkaline Phosphatase 873H, Ammonia 63H, Troponin I 0.000, Pro-B-Type Natriuretic Peptide 1127H, Total Protein 5.7L, Albumin 1.7L, Globulin 4.0, Albumin/Globulin Ratio 0.4L, Triglycerides Level 304H, Cholesterol Level 319H, LDL Cholesterol 316H, HDL Cholesterol 4L, Cholesterol/HDL Ratio 79.8H, Lipase 1082H, Alpha Fetoprotein [Pending], Vitamin B12 Level > 2000H, Folate 90.6H, Thyroid Stimulating Hormone (TSH) 2.917, Cortisol AM Sample [Pending] Height (Feet): 5 Height (Inches): 9.00 Weight (Pounds): 150 General Appearance: no apparent distress, lethargic Cardiovascular: tachycardia Respiratory/Chest: decreased breath sounds Abdomen: distended, other - ascitis LC FULLER Nov 11, 2017 13:12
--- NOTE | 2017-11-11 13:45 | Consultation ---
DATE OF CONSULTATION: 11/10/2017 PAIN MANAGEMENT CONSULTATION CONSULTING PHYSICIAN: Johnna Doan M.D. REFERRING PHYSICIAN: Rich Delaney M.D. PHYSICIAN VINYL HANGER: Mary Tate CHIEF COMPLAINT: Abdominal pain. HISTORY OF PRESENT ILLNESS: This is a 67-year-old male, who is being seen on the Med/Surg floor of [facility] for initial comprehensive pain management consultation. The patient is reporting that he has been having abdominal pain, recently diagnosed to have liver cancer, receiving radiation treatment, possible metastasis to the brain, and has been having pain rating it at 3/10 to 6/10. At this time, the patient is comfortable and does not want to take any IV opioids. Discussed with the patient about starting him on tramadol 50 mg tablet every 6 hours as needed for severe pain. The patient understands and agrees. He has no other complaints. PAST MEDICAL HISTORY: Hypertension and liver cancer. PAST SURGICAL HISTORY: Denies. MEDICATIONS: Vitamin C, aspirin, Lipitor, Lumigan, Alphagan, Wellbutrin, Lexapro, Neurontin, lansoprazole, Prevacid, Provigil, Flomax. ALLERGIES: No known drug allergies. SOCIAL HISTORY: Denies smoking, drinking alcohol, or IV drug abuse. REVIEW OF SYSTEMS: Denies rash, fever, chills, sweating, dizziness, drowsiness, or change in his weight. No shortness of breath or chest pain. No nausea or vomiting. He is complaining of abdominal pain and weakness. PHYSICAL EXAMINATION: GENERAL: Alert, awake, and oriented. VITAL SIGNS: Blood pressure 103/70, heart rate is 95, oxygen saturation is 99%, respiratory rate 20, and temperature 97.2 degrees Fahrenheit. HEENT: PERRLA. NECK: Range of motion is full in all directions. No tenderness to paracervical muscles. No adenopathy. LUNGS: Decreased breath sounds bilaterally. HEART: Regular. ABDOMEN: Distended with tenderness to palpation. BACK: Range of motion is decreased in flexion and extension. EXTREMITIES: Upper and lower extremity range of motion is decreased due to the patient's current condition. No cyanosis. No clubbing. Sensory is intact. Reflexes are not obtainable. No adenopathy. ASSESSMENT AND PLAN: This is a 67-year-old male with abdominal pain and Metastatic melanoma (liver, lung, brain lesions). The patient will be discontinued off the Dilaudid IV and started on tramadol 50 mg tablet every 6 hours as needed for severe pain. The patient was discussed with Dr. Doan and Dr. Doan concurred. We will follow the patient. Thank you very much for the courtesy of this consultation. Johnna Doan M.D. ASHWINI Tate DR: RICHIE JOB#: [id number] CC: GWYN
--- NOTE | 2017-11-11 14:37 | Diagnostic Imaging Report ---
Indication: Abdominal pain Technique: Spiral acquisitions obtained through the abdomen and pelvis. No oral contrast utilized, per emergency room physician request No IV contrast utilized, per referring physician request.. Multiplanar reconstructions were generated. Total dose length product 662.68 mGycm. CTDIvol(s) 11.8 mGy. Dose reduction achieved using automated exposure control Comparison: None Findings: Lack of IV contrast limits assessment of the solid organs. The liver is markedly enlarged. Multiple low-attenuation masses are seen within the liver, largest in the left hepatic lobe segment 2 measuring 13 x 7 cm. There are also high attenuation masses, largest in segment IVb measuring 11 cm in long axis dimension. The gallbladder contains either gallstones or demonstrates focal calcifications within the vasques. It is not well demonstrated. No definite biliary ductal dilatation. The pancreas, spleen, adrenals, kidneys are grossly unremarkable. No retroperitoneal mass or adenopathy. There is a moderate amount of ascites fluid. There is diffuse congestion of the mesentery. In addition, there is suggestion of multiple small nodular opacity within the mesentery and omentum. The appendix is not definitely identified. The small bowel is mildly prominent, but contrast is seen all the way through the small bowel and into the colon. There is no small bowel wall thickening. The cecum and proximal ascending colon contain contrast. There is a section of the distal ascending colon and the hepatic flexure of the colon that is not opacified, the distal extent of which demonstrates somewhat irregular margins. Distal to this, the transverse colon is well-opacified. No definite evidence of diverticulosis or diverticulitis. There are small fat-containing inguinal hernias bilaterally. There is generalized edema of the subcutaneous fat. The included lung bases demonstrate mild interstitial septal thickening. There are small bilateral pleural effusions. There is a small amount of pericardial fluid. There are also atelectatic changes at both lung bases. Multiple nodules are seen within the visualized portions of the lung, the largest at the right lung base in the right middle lobe measuring 9 mm long axis dimension. The bones are remarkable for the presence of lower thoracic spine fusion hardware. The stenosis results in streak artifact which could obscure pathology. There are degenerative changes of the lumbar spine. Impression: Evidence of disseminated malignancy, with multiple masses within the liver, and multiple nodules within both lungs. There is also equivocal nodularity of the mesenteric and omental fat which is also concerning for metastatic deposits Per discussion with Dr. Woody's PAAnn, patient has history of metastatic melanoma, presumably the etiology the above findings Nonopacification of a portion of the ascending colon and and hepatic flexure. Probably just a segment of nondistended colon, but the appearance of the distal section of this does raise the possibility of neoplasm. Evidence of anasarca, with moderate ascites, small bilateral pleural effusions, diffuse edema of the subcutaneous and abdominal fat, small pericardial effusion, and mild pulmonary interstitial edema. Gallbladder calcifications may be gallstones or focal mural calcifications Other findings as noted, including evidence of prior thoracic spine fusion surgery, degenerative lumbar spondylosis, basilar pulmonary atelectatic changes, small fat-containing bilateral inguinal hernias Findings discussed by phone with Dr. Woody's PA, Ann, at the time of interpretation The CT scanner at [facility] is accredited by the [employer] and the scans are performed using protocols designed to limit radiation exposure to as low as reasonably achievable to attain images of sufficient resolution adequate for diagnostic evaluation.
[2017-11-11 16:00] VITALS: BP 109/70
[2017-11-11 20:00] VITALS: BP 110/67
[2017-11-11] MEDS: Latanoprost 0.005% Opth 2.5ml Soln BOTH EYES SCH (20:28)
--- NOTE | 2017-11-11 20:35 | General Progress Note ---
Progress Note Progress Note Surgery: no acute events. tolerating diet. +flatus +BM's. CT reviewed no surgical intervention necessary at this time. unfortunate case with poor prognosis. fortunately no obstruction and pain likely from masses Den Sanchez Nov 11, 2017 20:35
--- NOTE | 2017-11-11 23:11 | General Progress Note ---
Assessment/Plan Problem List: (1) Acute renal failure ICD Codes: N17.9 - Acute kidney failure, unspecified SNOMED: 61351195 (2) depressive disorder NOS (3) Abdominal pain ICD Codes: R10.9 - Unspecified abdominal pain SNOMED: 20593509 Qualifiers: Qualified Codes: R10.84 - Generalized abdominal pain (4) Weakness ICD Codes: R53.1 - Weakness SNOMED: 20869693 (5) Malnutrition ICD Codes: E46 - Unspecified protein-calorie malnutrition SNOMED: 15613134 (6) Weight loss ICD Codes: R63.4 - Abnormal weight loss SNOMED: 87161598, 423869454 (7) Elevated liver enzymes ICD Codes: R74.8 - Abnormal levels of other serum enzymes SNOMED: 704368036 (8) Metabolic acidosis ICD Codes: E87.2 - Acidosis SNOMED: 78002749 (9) Hyponatremia ICD Codes: E87.1 - Hypo-osmolality and hyponatremia SNOMED: 22175733 (10) lives alone (11) HARMONY (acute kidney injury) ICD Codes: N17.9 - Acute kidney failure, unspecified SNOMED: 62916467 (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 (13) Metastatic melanoma ICD Codes: C79.9 - Secondary malignant neoplasm of unspecified site SNOMED: 490398212 (14) BPH (benign prostatic hyperplasia) ICD Codes: N40.0 - Benign prostatic hyperplasia without lower urinary tract symptoms SNOMED: 072153917 (15) Liver failure ICD Codes: K72.90 - Hepatic failure, unspecified without coma SNOMED: 48791100 Qualifiers: Qualified Codes: K72.00 - Acute and subacute hepatic failure without coma (16) HLD (hyperlipidemia) ICD Codes: E78.5 - Hyperlipidemia, unspecified SNOMED: 21473549 (17) Renal failure ICD Codes: N19 - Unspecified kidney failure SNOMED: 33084863 Qualifiers: Qualified Codes: N19 - Unspecified kidney failure (18) Anemia ICD Codes: D64.9 - Anemia, unspecified SNOMED: 792749874 Qualifiers: Qualified Codes: D64.9 - Anemia, unspecified (19) Hyperlipemia ICD Codes: E78.5 - Hyperlipidemia, unspecified SNOMED: 88602774 Status: not improved Assessment/Plan Renal consulted given HARMONY CT a/p reviewed with metastatic disease in multiple organs Patient refusing dialysis IVFs Check renal U/S - negative Hold ARB Surgery consulted given abd pain and distention. Pt w/ rising bili so r/o biliary blockage or stone Check U/S abd - refused Trend LFTs - downtrending slowly LDL 316 - will avoid starting on statin right now given acute liver failure Heme/onc consulted. D/w pt's oncologist Dr. Laws, concern for hepatorenal syndrome given rising bili and rising SCr. Pt may now not be a candidate for clinical trial. Anemia workup per heme/onc Pain mgmt consulted Pain control, bowel regimen Supportive care Nutritional eval Pt requests transfer to [facility] as his oncologist is there. Pt placed on transfer list. No bed yet available. DVT Prophylaxis: SCD, HSQ Code Status: Full Hospital Classification Declaration: Based on this initial evaluation, and depending on the patient's clinical course, I anticipate that this patient will require hospitalization for 2-3 days for HARMONY, pain control, and close respiratory/hemodynamic monitoring. Disposition: Once the patient is stable to leave the hospital, I anticipate the patient will likely be discharged to the following environment: home with HH vs SNF I spent 35 minutes on this patient's case, and >50% was dedicated to counseling and/or care coordination. Discussed with patient/family, nursing staff, SW/CM, surgery, heme/onc, renal regarding clinical status, treatment course, and disposition planning. Time of note may not reflect time of encounter. Subjective Date patient seen: Nov 11, 2017 Time patient seen: 14:00 Allergies: Coded Allergies: No Known Allergies (Unverified , 08/09/13) Subjective CT reviewed with metastatic nodules in multiple organs patient refusing further diagnostic tests or treatment, requesting to be transferred to [facility] pending transfer to [facility], on [facility] waiting list LFTs downtrending, Cr uptrending. Patient refusing dialysis at this time despite risks and benefits explained Objective Last 24 Hour Vital Signs Date Time Temp Pulse Resp B/P (MAP) Pulse Ox O2 Delivery O2 Flow Rate FiO2 11/11/17 20:00 98.9 77 18 110/67 98.9 11/11/17 18:43 98.0 11/11/17 16:00 98.0 89 23 109/70 95 Room Air 98.0 11/11/17 12:00 97.3 92 22 113/74 95 Room Air 97.3 11/11/17 11:55 97.3 11/11/17 10:59 97.3 11/11/17 08:00 97.3 90 22 113/75 95 Room Air 97.3 11/11/17 04:00 98.1 90 20 110/74 95 98.1 11/11/17 00:00 97.2 86 20 104/69 95 97.2 Intake and Output 11/10/17 11/11/17 19:00 07:00 Intake Total 335 ml 900 ml Balance 335 ml 900 ml Intake Oral 260 ml IV Total 75 ml 900 ml # Voids 4 2 # Bowel Movements 1 Laboratory Tests 11/11/17 05:30: White Blood Count 10.6, Red Blood Count 3.07L, Hemoglobin 9.6L, Hematocrit 27.8L , Mean Corpuscular Volume 91, Mean Corpuscular Hemoglobin 31.1H, Mean Corpuscular Hemoglobin Concent 34.4, Red Cell Distribution Width 18.4H, Platelet Count 501H, Mean Platelet Volume 5.9L, Neutrophils (%) (Auto) 78.2H, Lymphocytes (%) (Auto) 13.0L, Monocytes (%) (Auto) 7.7, Eosinophils (%) (Auto) 0.7, Basophils (%) (Auto) 0.4, Sodium Level 135L, Potassium Level 3.8, Chloride Level 103, Carbon Dioxide Level 17L, Anion Gap 15, Blood Urea Nitrogen 79H, Creatinine 5.0H, Estimat Glomerular Filtration Rate 11.6, Glucose Level 72L, Hemoglobin A1c 4.8, Uric Acid 14.6H, Calcium Level 8.8, Phosphorus Level 5.9H, Magnesium Level 2.0, Iron Level 27L, Total Iron Binding Capacity 218L, Percent Iron Saturation 12L, Unsaturated Iron Binding 191, Ferritin 540H, Total Bilirubin 5.4H, Direct Bilirubin 4.7H, Gamma Glutamyl Transpeptidase 692H, Aspartate Amino Transf (AST/SGOT) 89H, Alanine Aminotransferase (ALT/SGPT) 36, Alkaline Phosphatase 873H, Ammonia 63H, Troponin I 0.000, Pro-B-Type Natriuretic Peptide 1127H, Total Protein 5.7L, Albumin 1.7L, Globulin 4.0, Albumin/Globulin Ratio 0.4L, Triglycerides Level 304H, Cholesterol Level 319H, LDL Cholesterol 316H, HDL Cholesterol 4L, Cholesterol/HDL Ratio 79.8H, Lipase 1082H, Alpha Fetoprotein [Pending], Vitamin B12 Level > 2000H, Folate 90.6H, Thyroid Stimulating Hormone (TSH) 2.917, Cortisol AM Sample 18.2 Height (Feet): 5 Height (Inches): 9.00 Weight (Pounds): 150 General Appearance: no apparent distress, alert EENT: PERRL/EOMI, normal ENT inspection Neck: non-tender, normal alignment Cardiovascular: normal peripheral pulses, normal rate, regular rhythm Respiratory/Chest: chest wall non-tender, lungs clear, normal breath sounds Abdomen: normal bowel sounds, non tender, soft Extremities: normal range of motion, non-tender Neurologic: lidar analyst II-XII grossly normal, no motor/sensory deficits, alert, oriented x 3 Skin: normal pigmentation, warm/dry Yuko Juarez N.P. Nov 11, 2017 23:11
--- NOTE | 2017-11-11 23:21 | General Progress Note ---
Assessment/Plan Assessment/Plan 1. Metastatic liver cancer with extremely poor prognosis, history of coagulopathy, history of asterixis. --> The patient already has brain metastasis. Metastatic liver cancer is a disease generally at this time in this era with poor prognosis even with the most advanced treatments. --> Generally, patients can benefit from multikinase, tyrosine kinase inhibitors , however again, the patient at this time given current treatment poorly. --> I have discussed with him RFA systemic treatment with TKI and/or undergoing clinical trial at [facility]. He has seen a sample dye mixer at [facility] and his plan is to begin immunotherapy, potentially a clinical trial with immunotherapy of some type. --> At this time, his prognosis remains again very poor given brain metastasis and has extremely short window to begin treatment. 2. Anemia due to underlying chronic disease. --> Continue to closely monitor. Hemoglobin goal is above 7. --> Blood transfusion not required unless symptomatic or hgb below glow 3. Hyperbilirubinemia likely secondary to liver involvement with metastasis, has been imaged before at [facility]. 4. Hypertension. Systolic blood pressure goal less than 140. 5. Acute on chronic hepatic failure without coma. 6. Coagulopathy. INR 1.2. Subjective Date patient seen: Nov 11, 2017 Constitutional: Denies: no symptoms, chills, diaphoresis, fever, malaise, weakness, other HEENT: Denies: no symptoms, eye pain, blurred vision, tearing, double vision, ear pain, ear discharge, nose pain, nose congestion, throat pain, throat swelling, mouth pain, mouth swelling, other Cardiovascular: Denies: no symptoms, chest pain, edema, irregular heart rate, lightheadedness, palpitations, syncope, other Respiratory: Denies: no symptoms, cough, orthopnea, shortness of breath, SOB with excertion, SOB at rest, sputum, stridor, wheezing, other Gastrointestinal/Abdominal: Denies: no symptoms, abdomen distended, abdominal pain, black stools, tarry stools, blood in stool, constipated, diarrhea, difficulty swallowing, nausea, poor appetite, poor fluid intake, rectal bleeding , vomiting, other Genitourinary: Denies: no symptoms, burning, discharge, frequency, flank pain, hematuria, incontinence, pain, urgency, other Neurologic/Psychiatric: Denies: no symptoms, anxiety, depressed, emotional problems, headache, numbness, paresthesia, pre-existing deficit, seizure, tingling, tremors, weakness, other Hematologic/Lymphatic: Reports: anemia Allergies: Coded Allergies: No Known Allergies (Unverified , 08/09/13) Subjective Poor prognosis. No fever. H/H stable. Objective Last 24 Hour Vital Signs Date Time Temp Pulse Resp B/P (MAP) Pulse Ox O2 Delivery O2 Flow Rate FiO2 11/11/17 20:00 98.9 77 18 110/67 98.9 11/11/17 18:43 98.0 11/11/17 16:00 98.0 89 23 109/70 95 Room Air 98.0 11/11/17 12:00 97.3 92 22 113/74 95 Room Air 97.3 11/11/17 11:55 97.3 11/11/17 10:59 97.3 11/11/17 08:00 97.3 90 22 113/75 95 Room Air 97.3 11/11/17 04:00 98.1 90 20 110/74 95 98.1 11/11/17 00:00 97.2 86 20 104/69 95 97.2 Intake and Output 11/10/17 11/11/17 19:00 07:00 Intake Total 335 ml 900 ml Balance 335 ml 900 ml Intake Oral 260 ml IV Total 75 ml 900 ml # Voids 4 2 # Bowel Movements 1 Laboratory Tests 11/11/17 05:30: White Blood Count 10.6, Red Blood Count 3.07L, Hemoglobin 9.6L, Hematocrit 27.8L , Mean Corpuscular Volume 91, Mean Corpuscular Hemoglobin 31.1H, Mean Corpuscular Hemoglobin Concent 34.4, Red Cell Distribution Width 18.4H, Platelet Count 501H, Mean Platelet Volume 5.9L, Neutrophils (%) (Auto) 78.2H, Lymphocytes (%) (Auto) 13.0L, Monocytes (%) (Auto) 7.7, Eosinophils (%) (Auto) 0.7, Basophils (%) (Auto) 0.4, Sodium Level 135L, Potassium Level 3.8, Chloride Level 103, Carbon Dioxide Level 17L, Anion Gap 15, Blood Urea Nitrogen 79H, Creatinine 5.0H, Estimat Glomerular Filtration Rate 11.6, Glucose Level 72L, Hemoglobin A1c 4.8, Uric Acid 14.6H, Calcium Level 8.8, Phosphorus Level 5.9H, Magnesium Level 2.0, Iron Level 27L, Total Iron Binding Capacity 218L, Percent Iron Saturation 12L, Unsaturated Iron Binding 191, Ferritin 540H, Total Bilirubin 5.4H, Direct Bilirubin 4.7H, Gamma Glutamyl Transpeptidase 692H, Aspartate Amino Transf (AST/SGOT) 89H, Alanine Aminotransferase (ALT/SGPT) 36, Alkaline Phosphatase 873H, Ammonia 63H, Troponin I 0.000, Pro-B-Type Natriuretic Peptide 1127H, Total Protein 5.7L, Albumin 1.7L, Globulin 4.0, Albumin/Globulin Ratio 0.4L, Triglycerides Level 304H, Cholesterol Level 319H, LDL Cholesterol 316H, HDL Cholesterol 4L, Cholesterol/HDL Ratio 79.8H, Lipase 1082H, Alpha Fetoprotein [Pending], Vitamin B12 Level > 2000H, Folate 90.6H, Thyroid Stimulating Hormone (TSH) 2.917, Cortisol AM Sample 18.2 Height (Feet): 5 Height (Inches): 9.00 Weight (Pounds): 150 General Appearance: lethargic Respiratory/Chest: decreased breath sounds Rich Delaney MD Nov 11, 2017 23:21
[2017-11-12] VITALS: BP 112/74
[2017-11-12 04:00] VITALS: BP 115/76
[2017-11-12 07:58] LABS: BASOPHILS % (AUTO) 0.5 % (0.0-2.0); EOSINOPHILS % (AUTO) 0.3 % (0.0-3.0); HEMATOCRIT 29.2 % (42.0-52.0); HEMOGLOBIN 10.2 G/DL (14.2-18.0); LYMPHOCYTES % (AUTO) 12.5 % (20.0-45.0); MEAN CORPUSCULAR VOLUME 92 FL (80-99); MONOCYTES % (AUTO) 7.1 % (1.0-10.0); NEUTROPHILS % (AUTO) 79.5 % (45.0-75.0); PLATELET COUNT 500 K/UL (150-450); RED BLOOD COUNT 3.16 M/UL (4.70-6.10); RED CELL DISTRIBUTION WIDTH 19.3 % (11.6-14.8); WHITE BLOOD COUNT 10.7 K/UL (4.8-10.8)
[2017-11-12] MEDS: Brimonidine 0.2% Opth Sol BOTH EYES SCH ×3 (08:01→18:32)
[2017-11-12] MEDS: traMADol 50mg tab ORAL PRN ×2 (08:02→18:32)
[2017-11-12] MEDS: Tamsulosin 0.4mg cap ORAL SCH ×2 (08:02→18:32)
[2017-11-12] MEDS: Modafinil 100mg tab ORAL SCH ×2 (08:03→18:32)
[2017-11-12] MEDS: BuPROPion XL 300mg tab ORAL SCH (08:03)
[2017-11-12 08:25] LABS: ALANINE AMINOTRANSFERASE 34 U/L (12-78); ALBUMIN 1.7 G/DL (3.4-5.0); ALKALINE PHOSPHATASE 801 U/L (46-116); ANION GAP 17 mmol/L (5-15); ASPARTATE AMINO TRANSFERASE 92 U/L (15-37); BILIRUBIN,DIRECT 4.7 MG/DL (0.0-0.3); BILIRUBIN,TOTAL 5.4 MG/DL (0.2-1.0); BLOOD UREA NITROGEN 86 mg/dL (7-18); CALCIUM 8.8 MG/DL (8.5-10.1); CARBON DIOXIDE 16 MMOL/L (21-32); CHLORIDE 104 MMOL/L (98-107); CREATININE 5.2 MG/DL (0.55-1.30); POTASSIUM 3.7 MMOL/L (3.5-5.1); SODIUM 137 MMOL/L (136-145)
[2017-11-12 08:35] VITALS: BP 130/74
--- NOTE | 2017-11-12 09:25 | Nephrology Progress Note ---
Assessment/Plan Problem List: (1) Metastatic melanoma (2) Acute renal failure (3) Anemia Assessment Renal failure, ? Acute on Chronic. Cr rising 5.2 today High Bili , Liver mets from melanoma Anemia Plan Plan: suggested dialysis- patient declining at this time Kidney SAMMY noted Anemia lopez GI eval avoid nephrotoxics per orders Subjective ROS Limited/Unobtainable: No Constitutional: Reports: malaise, weakness Objective Objective Last 24 Hour Vital Signs Date Time Temp Pulse Resp B/P (MAP) Pulse Ox O2 Delivery O2 Flow Rate FiO2 11/12/17 08:35 97.2 90 20 130/74 95 97.2 11/12/17 08:02 97.5 11/12/17 04:00 97.5 89 20 115/76 96 97.5 11/12/17 00:00 97.2 98 20 112/74 93 97.2 11/11/17 20:00 98.9 77 18 110/67 98.9 11/11/17 18:43 98.0 11/11/17 16:00 98.0 89 23 109/70 95 Room Air 98.0 11/11/17 12:00 97.3 92 22 113/74 95 Room Air 97.3 11/11/17 11:55 97.3 11/11/17 10:59 97.3 Intake and Output 11/11/17 11/12/17 19:00 07:00 Intake Total 1185 ml 1380 ml Balance 1185 ml 1380 ml Intake Oral 360 ml 480 ml IV Total 825 ml 900 ml # Voids 3 3 # Bowel Movements 5 1 Laboratory Tests 11/12/17 07:10: White Blood Count 10.7, Red Blood Count 3.16L, Hemoglobin 10.2L, Hematocrit 29.2L, Mean Corpuscular Volume 92, Mean Corpuscular Hemoglobin 32.2H, Mean Corpuscular Hemoglobin Concent 34.9, Red Cell Distribution Width 19.3H, Platelet Count 500H, Mean Platelet Volume 6.2L, Neutrophils (%) (Auto) 79.5H, Lymphocytes (%) (Auto) 12.5L, Monocytes (%) (Auto) 7.1, Eosinophils (%) (Auto) 0.3, Basophils (%) (Auto) 0.5, Sodium Level 137, Potassium Level 3.7, Chloride Level 104, Carbon Dioxide Level 16L, Anion Gap 17H, Blood Urea Nitrogen 86H, Creatinine 5.2H, Estimat Glomerular Filtration Rate 11.1, Glucose Level 73L, Calcium Level 8.8, Total Bilirubin 5.4H, Direct Bilirubin 4.7H, Aspartate Amino Transf (AST/SGOT) 92H, Alanine Aminotransferase (ALT/SGPT) 34, Alkaline Phosphatase 801H, Total Protein 5.9L, Albumin 1.7L Height (Feet): 5 Height (Inches): 9.00 Weight (Pounds): 150 General Appearance: no apparent distress Respiratory/Chest: decreased breath sounds Abdomen: distended LC FULLER Nov 12, 2017 09:25
[2017-11-12] MEDS ORDERED: Albumin Human 5% 250ml IV ONE ×2 (09:30→10:30)
--- NOTE | 2017-11-12 10:01 | General Surgery Progress Note ---
General Surgery-Progress Note Subjective Additional Comments no acute events. Cr continues to trend up. bili stable. tolerating diet. bowel function Objective Last 24 Hour Vital Signs Date Time Temp Pulse Resp B/P (MAP) Pulse Ox O2 Delivery O2 Flow Rate FiO2 11/12/17 08:35 97.2 90 20 130/74 95 97.2 11/12/17 08:02 97.5 11/12/17 04:00 97.5 89 20 115/76 96 97.5 11/12/17 00:00 97.2 98 20 112/74 93 97.2 11/11/17 20:00 98.9 77 18 110/67 98.9 11/11/17 18:43 98.0 11/11/17 16:00 98.0 89 23 109/70 95 Room Air 98.0 11/11/17 12:00 97.3 92 22 113/74 95 Room Air 97.3 11/11/17 11:55 97.3 11/11/17 10:59 97.3 I&O Intake and Output 11/11/17 11/12/17 19:00 07:00 Intake Total 1185 ml 1380 ml Balance 1185 ml 1380 ml Intake Oral 360 ml 480 ml IV Total 825 ml 900 ml # Voids 3 3 # Bowel Movements 5 1 Cardiovascular: RSR Respiratory: clear Abdomen: other - firm, distended, non tender, large mass effect Extremities: no cyanosis Laboratory Tests Test 11/12/17 07:10 White Blood Count 10.7 K/UL (4.8-10.8) Red Blood Count 3.16 M/UL (4.70-6.10) L Hemoglobin 10.2 G/DL (14.2-18.0) L Hematocrit 29.2 % (42.0-52.0) L Mean Corpuscular Volume 92 FL (80-99) Mean Corpuscular Hemoglobin 32.2 PG (27.0-31.0) H Mean Corpuscular Hemoglobin Concent 34.9 G/DL (32.0-36.0) Red Cell Distribution Width 19.3 % (11.6-14.8) H Platelet Count 500 K/UL (150-450) H Mean Platelet Volume 6.2 FL (6.5-10.1) L Neutrophils (%) (Auto) 79.5 % (45.0-75.0) H Lymphocytes (%) (Auto) 12.5 % (20.0-45.0) L Monocytes (%) (Auto) 7.1 % (1.0-10.0) Eosinophils (%) (Auto) 0.3 % (0.0-3.0) Basophils (%) (Auto) 0.5 % (0.0-2.0) Sodium Level 137 MMOL/L (136-145) Potassium Level 3.7 MMOL/L (3.5-5.1) Chloride Level 104 MMOL/L (98-107) Carbon Dioxide Level 16 MMOL/L (21-32) L Anion Gap 17 mmol/L (5-15) H Blood Urea Nitrogen 86 mg/dL (7-18) H Creatinine 5.2 MG/DL (0.55-1.30) H Estimat Glomerular Filtration Rate 11.1 mL/min (>60) Glucose Level 73 MG/DL (74-106) L Calcium Level 8.8 MG/DL (8.5-10.1) Total Bilirubin 5.4 MG/DL (0.2-1.0) H Direct Bilirubin 4.7 MG/DL (0.0-0.3) H Aspartate Amino Transf (AST/SGOT) 92 U/L (15-37) H Alanine Aminotransferase (ALT/SGPT) 34 U/L (12-78) Alkaline Phosphatase 801 U/L (46-116) H Total Protein 5.9 G/DL (6.4-8.2) L Albumin 1.7 G/DL (3.4-5.0) L Plan Problems: (1) Abdominal pain Assessment & Plan: 67M with metastatic melanoma. known abdominal pathology/ disease. exam with distended/firm abdomen but no peritonitis. no n/v. passing flatus/loose bm's. does not seem to be obstructed at this time. pain likely chronic and from metastatic condition. t bili elevated. CT with multiple liver masses. lack of contrast limited exam but no dilated intrahepatic biliary tracts noted. likely from mass effect. Unfortunately given etiology and extensive disease prognosis guarded. no acute surgical intervention indicated. agree with higher level of care given complexity of condition -patients states possible clinical trail at [facility]. may also consider hospice. thank you for this consultation. will follow with recs. Den Sanchez Nov 12, 2017 10:01
[2017-11-12 12:00] VITALS: BP 128/76
[2017-11-12 16:00] VITALS: BP 111/55
[2017-11-12] MEDS ORDERED: ALLOPURINOL300 M1 ORAL (18:55)
[2017-11-12] MEDS ORDERED: LATANOPROST2.5 ML BOTH EYES (18:56)
[2017-11-12] MEDS ORDERED: RENVELA800 MG ORAL (18:58)
[2017-11-12] MEDS ORDERED: TAMSULOSIN HCL0.4 MG ORAL (18:59)
[2017-11-12 20:00] VITALS: BP 101/71
[2017-11-12] MEDS: Latanoprost 0.005% Opth 2.5ml Soln BOTH EYES SCH (21:00)
[2017-11-12] MEDS ORDERED: Tubing IV Secondary IV ONE (21:44)
--- NOTE | 2017-11-13 00:03 | General Progress Note ---
Assessment/Plan Assessment/Plan 1. Metastatic liver cancer with extremely poor prognosis, history of coagulopathy, history of asterixis. --> The patient already has brain metastasis. Metastatic liver cancer is a disease generally at this time in this era with poor prognosis even with the most advanced treatments. --> Generally, patients can benefit from multikinase, tyrosine kinase inhibitors , however again, the patient at this time given current treatment poorly. --> I have discussed with him RFA systemic treatment with TKI and/or undergoing clinical trial at [facility]. ---> He has seen a pound attendant at [facility] and his plan is to begin immunotherapy , potentially a clinical trial with immunotherapy of some type. --> At this time, his prognosis remains again very poor given brain metastasis and has extremely short window to begin treatment. 2. Anemia due to underlying chronic disease. --> Continue to closely monitor. Hemoglobin goal is above 7. --> Blood transfusion not required unless symptomatic or hgb below glow --> Hemoglobin stable at this time. 3. Hyperbilirubinemia likely secondary to liver involvement with metastasis, has been imaged before at [facility]. 4. Hypertension. Systolic blood pressure goal less than 140. 5. Acute on chronic hepatic failure without coma. 6. Coagulopathy. INR 1.2. Subjective Date patient seen: Nov 12, 2017 Constitutional: Denies: no symptoms, chills, diaphoresis, fever, malaise, weakness, other HEENT: Denies: no symptoms, eye pain, blurred vision, tearing, double vision, ear pain, ear discharge, nose pain, nose congestion, throat pain, throat swelling, mouth pain, mouth swelling, other Cardiovascular: Denies: no symptoms, chest pain, edema, irregular heart rate, lightheadedness, palpitations, syncope, other Respiratory: Denies: no symptoms, cough, orthopnea, shortness of breath, SOB with excertion, SOB at rest, sputum, stridor, wheezing, other Gastrointestinal/Abdominal: Denies: no symptoms, abdomen distended, abdominal pain, black stools, tarry stools, blood in stool, constipated, diarrhea, difficulty swallowing, nausea, poor appetite, poor fluid intake, rectal bleeding , vomiting, other Genitourinary: Denies: no symptoms, burning, discharge, frequency, flank pain, hematuria, incontinence, pain, urgency, other Neurologic/Psychiatric: Denies: no symptoms, anxiety, depressed, emotional problems, headache, numbness, paresthesia, pre-existing deficit, seizure, tingling, tremors, weakness, other Hematologic/Lymphatic: Reports: anemia Allergies: Coded Allergies: No Known Allergies (Unverified , 08/09/13) Subjective H/H stable. No complaints of pain. Pending transfer. Objective Last 24 Hour Vital Signs Date Time Temp Pulse Resp B/P (MAP) Pulse Ox O2 Delivery O2 Flow Rate FiO2 11/12/17 20:00 97.3 104 22 101/71 95 97.3 11/12/17 18:32 98.6 11/12/17 16:00 98.6 91 18 111/55 98 98.6 11/12/17 12:00 97.4 92 20 128/76 97 97.4 11/12/17 09:01 97.2 11/12/17 08:35 97.2 90 20 130/74 95 97.2 11/12/17 08:02 97.5 11/12/17 04:00 97.5 89 20 115/76 96 97.5 Intake and Output 11/12/17 11/13/17 19:00 07:00 Intake Total 1980 ml Output Total 450 ml Balance 1530 ml Intake Oral 510 ml IV Total 1150 ml Other 320 ml Output Urine Total 450 ml # Voids 1 Laboratory Tests 11/12/17 07:10: White Blood Count 10.7, Red Blood Count 3.16L, Hemoglobin 10.2L, Hematocrit 29.2L, Mean Corpuscular Volume 92, Mean Corpuscular Hemoglobin 32.2H, Mean Corpuscular Hemoglobin Concent 34.9, Red Cell Distribution Width 19.3H, Platelet Count 500H, Mean Platelet Volume 6.2L, Neutrophils (%) (Auto) 79.5H, Lymphocytes (%) (Auto) 12.5L, Monocytes (%) (Auto) 7.1, Eosinophils (%) (Auto) 0.3, Basophils (%) (Auto) 0.5, Sodium Level 137, Potassium Level 3.7, Chloride Level 104, Carbon Dioxide Level 16L, Anion Gap 17H, Blood Urea Nitrogen 86H, Creatinine 5.2H, Estimat Glomerular Filtration Rate 11.1, Glucose Level 73L, Calcium Level 8.8, Total Bilirubin 5.4H, Direct Bilirubin 4.7H, Aspartate Amino Transf (AST/SGOT) 92H, Alanine Aminotransferase (ALT/SGPT) 34, Alkaline Phosphatase 801H, Total Protein 5.9L, Albumin 1.7L Height (Feet): 5 Height (Inches): 9.00 Weight (Pounds): 150 General Appearance: no apparent distress EENT: normal ENT inspection Cardiovascular: normal rate Respiratory/Chest: lungs clear Abdomen: soft Rich Delaney MD Nov 13, 2017 00:03
--- NOTE | 2017-11-13 09:03 | Discharge Summary ---
Discharge Summary Hospital Course Date of Admission Nov 09, 2017 at 18:55 Date of Discharge Nov 12, 2017 at 21:45 Admitting Diagnosis weakness CHAI Murillo is a 67 year old male who was admitted on Nov 09, 2017 at 18:55 for Weakness 67y/o male with pmh of BPH, HLD, R sided ocular melanoma (s/p XRT 2005), newly diagnosed metastatic melanoma (liver, lung, brain lesions) who presents with generalized weakness and intractable pain. Pt states that he was diagnosed with liver cancer in September 2017. Per review of [facility] records, pt presented with abd pain and was noted to have liver and lung lesions on 09/21/17. Pt had CT-guided biopsy on liver lesion on 09/30/17 which showed metastatic melanoma. Pt was since been followed by oncologist Dr. Pedro Laws for consideration of clinical trial. MRI brain done also showed 2 lesions in brain. Pt has also received stereotactic radiosurgery at [facility] on 10/21/17. Pt states he has had worsening abd pain and distention. he was evaluated for paracentesis recently and they determined there was insufficient fluid. Pt states he has been taking Tylenol as well as Advil every 4 hours for the past week for pain control. He notes generalized weakness, poor PO intake and weight loss. Denies f/c, n/v, d/c, chest pain, SOB. In ED, pt's SCr noted to be in 4's. Per [facility] records, pt's SCr was 1.03 in 2017. Consultations Oncology, Dr. Delaney Pain management General surgery, Dr. Sanchez Nephrology, Dr. Sheriff Hospital Course Patient was admitted to med-surg. He was noted to have uptrending Cr and LFTs. Nephrology consultation was requested. Renal ultrasound was done, which was unremarkable. Given uptrending Cr, dialysis was recommended per nephrology but patient refused. General surgery was also consulted given elevated LFTs and elevated t. bill. Abdominal ultrasound was ordered but patient refused. CT a/p without IV contrast was done, which showed the following: e/o disseminated malignancy, with multiple masses within the liver, and multiple nodules within both lungs. Mesenteric and omental fat is also concerning for metastatic deposits. Nonopacification of a portion of the ascending colon and hepatic flexure with a possibility of neoplasm. Other findings of anasarca, with moderate ascites, small bilateral pleural effusions, diffuse edema of the subcutaneous and abdominal fat, small pericardial effusion, and mild pulmonary interstitial edema was also noted. Per discussion with Dr. Delaney and patient 's oncologist, Dr. Laws, patient had a poor prognosis given metastatic melanoma and hepatorenal syndrome from mets to liver. There was no further intervention recommended per general surgery. Pain management service was requested to better assist with patient's pain. Hospice was recommended to patient and risks and benefits were explained in great detail. Patient was agreeable to hospice. Patient was therefore transferred to [facility] for inpatient hospice. Patient was in stable condition for transfer. Discharge Medications Continued Medications: Allopurinol* (Allopurinol*) 300 Mg Tablet 300 MG ORAL DAILY, TAB (This prescription has been renewed) Brimonidine Tartrate* (Alphagan*) 5 Ml Drops 1 DROP BOTH EYES TID, ML Bupropion Hcl* (Wellbutrin*) 300 Mg Tab.er.24h 300 MG ORAL DAILY, #30 TAB 0 Refills (This prescription has been renewed) Fluoxetine Hcl* (Fluoxetine Hcl*) 20 Mg Capsule 20 MG ORAL BID, CAP (This prescription has been renewed) Gabapentin (Neurontin) 300 Mg Capsule 300 MG ORAL BEDTIME, #7 CAP 0 Refills (This prescription has been renewed) Lansoprazole (Lansoprazole) 30 Mg Capsule.dr 30 MG PO DAILY, CAP (This prescription has been renewed) Latanoprost* (Xalatan*) 2.5 Ml Drops 1 DROP BOTH EYES BEDTIME, ML 0 Refills (This prescription has been renewed) Lmfol Ca/Acetyl/Mb12/Algal Oil (Cerefolin Nac Caplet) 1 Each Tablet 1 EACH PO DAILY, TAB (This prescription has been renewed) Modafinil (Provigil) 100 Mg Tablet 100 MG ORAL BID, TAB 0 Refills (This prescription has been renewed) Valders-3 Fatty Acids/Fish Oil (Valders 3 Fish Oil Softgel) 1 Each Capsule.dr 1 EACH PO, CAP (This prescription has been renewed) Sevelamer Carbonate (Renvela) 800 Mg Tablet 800 MG ORAL THREE TIMES A DAY, TAB (This prescription has been renewed) Tamsulosin Hcl (Tamsulosin Hcl*) 0.4 Mg Cap.er.24h 0.4 MG ORAL BID, CAP (This prescription has been renewed) Discharge Condition Upon Discharge: stable Discharge Disposition Patient was discharged to [facility]. Discharge Diagnoses: (1) HLD (hyperlipidemia) (2) BPH (benign prostatic hyperplasia) (3) Metastatic melanoma (4) R sided ocular melanoma (5) Elevated liver enzymes (6) Hyponatremia (7) Metabolic acidosis (8) Weight loss (9) Malnutrition (10) Abdominal pain (11) Acute renal failure (12) depressive disorder NOS Yuko Juarez N.P. Nov 13, 2017 09:03
== END 2017-11-12 21:45 | disposition hospice, inpatient (51) | DRG 435 ==
LOC: EDBD 16:24 → EMR 18:47 → 4E 18:55 → EDBEDREQ 20:19
PROC: 30233N1 Transfusion of Nonautologous Red Blood Cells into Peripheral Vein, Percutaneous Approach (ICD-10-PCS; principal; 2017-11-09)
DX: C78.7 Secondary malignant neoplasm of liver and intrahepatic bile duct (principal); K72.00 Acute and subacute hepatic failure without coma; K76.7 Hepatorenal syndrome; N17.9 Acute kidney failure, unspecified; E87.1 Hypo-osmolality and hyponatremia; E87.2 Acidosis; C79.31 Secondary malignant neoplasm of brain; C78.00 Secondary malignant neoplasm of unspecified lung; E46 Unspecified protein-calorie malnutrition; Z68.1 Body mass index [BMI] 19.9 or less, adult; D68.4 Acquired coagulation factor deficiency; K72.10 Chronic hepatic failure without coma; Z85.840 Personal history of malignant neoplasm of eye; E78.5 Hyperlipidemia, unspecified; N40.0 Benign prostatic hyperplasia without lower urinary tract symptoms; Z92.3 Personal history of irradiation; R10.9 Unspecified abdominal pain; F32.9 Major depressive disorder, single episode, unspecified; D63.8 Anemia in other chronic diseases classified elsewhere
CPT/HCPCS: 36415; 74176; 76770; 80048; 80053; 80061; 80076; 81001; 82105; 82140; 82248; 82533; 82607; 82728; 82746; 82977; 83036; 83540; 83550; 83690; 83735; 83880; 84100; 84300; 84443; 84484; 84550; 85007; 85025; 85610; 86140; 86850; 86900; 86901; 86920; 93005; 99285